=== PATIENT | female | born 1955 | race Hispanic/Latino ===

== ENCOUNTER 2017-11-01 17:46 | Emergency (ER) | payer MEDICARE ==
[~2017-11-01 17:46] MED LIST: AMLO10TA2 PO; CLON0.2T PO; GLIP2.5T2 PO; HYDR100T27 PO; LISI40TA4 PO; METO100T14 PO; PANT40TA25 PO; PHOSLOC PO; TACR1CAP18 PO
[2017-11-01] MEDS ORDERED: ACETAMINOPHEN EXTRA STRENGTH 500 MG TABLET ONE (19:32)
[2017-11-01 19:41] LABS: BASOPHILS % (AUTO) 0.8 % (0.0-5.0); EOSINOPHILS % (AUTO) 4.8 % (0.0-8.0); HEMATOCRIT 30.7 % (36-48); LYMPHOCYTES % (AUTO) 11.3 % (21.0-51.0); MEAN CORPUSCULAR HEMOGLOBIN 32.3 pg (27.0-33.0); MEAN CORPUSCULAR VOLUME 94.8 fL (79-99); MONOCYTES % (AUTO) 11.5 % (3.0-13.0); NEUTROPHILS % (AUTO) 71.6 % (40.0-77.0); PLATELET COUNT (AUTO) 153 K/uL (130-400); RED BLOOD CELL COUNT(AUTO) 3.24 MIL/uL (4.00-5.50); RED CELL DISTRIBUTION WIDTH 13.2 % (11.0-15.5); WHITE BLOOD COUNT (AUTO) 5.3 K/uL (4.8-10.8)
[2017-11-01 19:52] LABS: INR 1.02 (0.85-1.15); PARTIAL THROMBOPLASTIN TIME 30.3 SEC (26.3-35.5); PROTHROMBIN TIME 10.7 SEC (9.6-11.6)
[2017-11-01 20:08] LABS: ALANINE AMINOTRANSFERASE 31 U/L (12-78); ALBUMIN 3.2 g/dL (3.5-5.0); ASPARTATE AMINOTRANSFERASE 24 U/L (10-37); BILIRUBIN,TOTAL 0.4 mg/dL (0.2-1.0); CARBON DIOXIDE 21 mmol/L (21-32); CHLORIDE 95 mmol/L (101-111); CREATINE KINASE MB < 0.5 ng/mL (0.5-3.6); CREATINE KINASE, TOTAL 26 U/L (21-232); GLOMERULAR FILTR. RATE CALC 5 mL/min (>60); GLUCOSE,RANDOM 173 mg/dL (70-105); POTASSIUM 5.2 mmol/L (3.5-5.1); SODIUM SERUM 134 mmol/L (136-145); TOTAL PROTEIN, SERUM 7.5 g/dL (6.0-8.3); UREA NITROGEN, BLOOD 44 mg/dL (7-18)
[2017-11-01] MEDS ORDERED: OSELTAMIVIR PHOSPHATE 75 MG CAP ONE (20:13)
[2017-11-01 20:19] LABS: CREATININE 8.4 mg/dL (0.5-1.5)
== END 2017-11-01 21:00 | disposition home or self-care (01) ==
LOC: EDH 17:46
DX: J09.X2 Influenza due to identified novel influenza A virus with other respiratory manifestations (principal); I12.0 Hypertensive chronic kidney disease with stage 5 chronic kidney disease or end stage renal disease; E11.22 Type 2 diabetes mellitus with diabetic chronic kidney disease; N18.6 End stage renal disease; Z99.2 Dependence on renal dialysis; Z88.0 Allergy status to penicillin; Z91.041 Radiographic dye allergy status; Z90.710 Acquired absence of both cervix and uterus; Z87.891 Personal history of nicotine dependence
CPT/HCPCS: 36415; 71045; 80053; 82550; 82553; 83605; 84484; 85025; 85610; 85730; 87040; 87804; 93005

== ENCOUNTER 2018-09-24 10:55 | Emergency (ER) | payer MEDICARE ==
[~2018-09-24 10:55] MED LIST changes: -AMLO10TA2 PO; +AMLO10TA6 PO
[2018-09-24] MEDS ORDERED: AZITHROMYCIN 250 MG TABLET PO ONE (12:45)
== END 2018-09-24 12:55 | disposition home or self-care (01) ==
LOC: EDH 10:55
DX: J20.9 Acute bronchitis, unspecified (principal); I12.0 Hypertensive chronic kidney disease with stage 5 chronic kidney disease or end stage renal disease; E11.22 Type 2 diabetes mellitus with diabetic chronic kidney disease; N18.6 End stage renal disease; Z99.2 Dependence on renal dialysis; Z90.710 Acquired absence of both cervix and uterus; Z88.0 Allergy status to penicillin; Z91.041 Radiographic dye allergy status
CPT/HCPCS: 71046

== ENCOUNTER 2018-11-14 11:23 | Inpatient (IN) | payer MEDICARE | END 2018-11-18 17:05 | disposition home or self-care (01) | LOC: EDH 11:23 → EDHIP 15:03 → 3BH 16:37 | DX: J18.9 Pneumonia, unspecified organism (principal); N18.6 End stage renal disease; J44.0 Chronic obstructive pulmonary disease with (acute) lower respiratory infection; R01.1 Cardiac murmur, unspecified; Z99.2 Dependence on renal dialysis; E11.22 Type 2 diabetes mellitus with diabetic chronic kidney disease ==

== ENCOUNTER 2018-12-01 15:48 | Inpatient (IN) | payer MEDICARE ==
[~2018-12-01] VITALS: Ht 167.6 cm; Wt 63.7 kg
[~2018-12-01 15:48] MED LIST changes: -AMLO10TA6 PO; +AMLO10TA7 PO; -GLIP2.5T2 PO; +LEVO500T2 PO; -PANT40TA25 PO
[2018-12-01] MEDS ORDERED: ALBUTEROL SULFATE 0.083% 2.5 MG/3 ML INH IH ONE (16:58)
[2018-12-01 17:25] LABS: BASOPHILS % (AUTO) 0.6 % (0.0-5.0); EOSINOPHILS % (AUTO) 1.7 % (0.0-8.0); LYMPHOCYTES % (AUTO) 15.3 % (21.0-51.0); MEAN CORPUSCULAR HEMOGLOBIN 32.4 pg (27.0-33.0); MEAN CORPUSCULAR HGB CONC 32.9 g/dL (32.0-36.0); MEAN CORPUSCULAR VOLUME 98.5 fL (79-99); MONOCYTES % (AUTO) 8.9 % (3.0-13.0); NEUTROPHILS % (AUTO) 73.5 % (40.0-77.0); NUCLEATED RED BLOOD CELLS 0.1 % (0.0-0.19); PLATELET COUNT (AUTO) 173 K/uL (130-400); RED BLOOD CELL COUNT(AUTO) 2.84 MIL/uL (4.00-5.50); RED CELL DISTRIBUTION WIDTH 15.4 % (11.0-15.5); WHITE BLOOD COUNT (AUTO) 4.2 K/uL (4.8-10.8)
[2018-12-01 17:35] LABS: CREATININE 3.4 mg/dL (0.5-1.5); POTASSIUM 3.4 mmol/L (3.5-5.1)
[2018-12-01] MEDS ORDERED: ONDANSETRON HCL 4 MG/2 ML VIAL IV PRN (19:15)
[2018-12-01] MEDS ORDERED: NITROGLYCERIN 1GM/1 INCH PACKET TD SCH (19:15)
[2018-12-01] MEDS ORDERED: MORPHINE SULFATE 2 MG/ML 1ML SYG IV PRN (19:15)
[2018-12-01] MEDS ORDERED: ACETAMINOPHEN 325 MG TAB PO PRN (19:15)
[2018-12-01] MEDS: HYDRALAZINE HCL 25 MG TABLET PO SCH (21:00)
[2018-12-01] MEDS: TACROLIMUS 1 MG CAPSULE PO SCH (21:00)
[2018-12-01] MEDS ORDERED: CLONIDINE HCL 0.2 MG TABLET PO SCH (21:00)
[2018-12-01] MEDS: ENOXAPARIN SODIUM 30 MG/0.3 ML SQ SCH (21:00)
[2018-12-01] MEDS: FUROSEMIDE 10 MG/ML 4ML VIAL IVP SCH (21:00)
[2018-12-01] MEDS: AMLODIPINE BESYLATE 5 MG TAB PO SCH (21:00)
[2018-12-01] MEDS: METOPROLOL TARTRATE 50 MG TAB PO SCH (21:00)
[2018-12-01] MEDS ORDERED: HYDRALAZINE HCL 25 MG TABLET ONE (21:28)
[2018-12-01] MEDS ORDERED: AMLODIPINE BESYLATE 5 MG TAB PO ONE (21:28)
[2018-12-01] MEDS ORDERED: METOPROLOL TARTRATE 50 MG TAB ONE (21:29)
[2018-12-01] MEDS ORDERED: FUROSEMIDE 10 MG/ML 4ML VIAL ONE (21:29)
[2018-12-01] MEDS ORDERED: ENOXAPARIN SODIUM 30 MG/0.3 ML SQ ONE (21:29)
[2018-12-01] MEDS ORDERED: FAMOTIDINE/PF 20 MG/2 ML VIAL IV ONE (21:30)
[2018-12-01] MEDS: IPRATROPIUM/ALBUTEROL SULFATE 3 ML SOLUTION IH SCH (23:23)
[2018-12-02] MEDS ORDERED: IPRATROPIUM/ALBUTEROL SULFATE 3 ML SOLUTION IH ONE ×2 (06:22→11:12)
[2018-12-02] MEDS: IPRATROPIUM/ALBUTEROL SULFATE 3 ML SOLUTION IH SCH ×3 (06:29→18:29)
[2018-12-02] MEDS: CALCIUM ACETATE 667 MG CAPSULE PO SCH ×3 (08:00→17:00)
[2018-12-02] MEDS ORDERED: ESCI5TAB10 PO (08:04)
[2018-12-02] MEDS ORDERED: ONDA4TAB9 PO (08:04)
[2018-12-02] MEDS: NITROGLYCERIN 1GM/1 INCH PACKET TD SCH ×2 (08:29→16:29)
[2018-12-02] MEDS: HYDRALAZINE HCL 25 MG TABLET PO SCH ×3 (09:00→21:00)
[2018-12-02] MEDS: ENOXAPARIN SODIUM 30 MG/0.3 ML SQ SCH ×2 (09:00→21:00)
[2018-12-02] MEDS: FUROSEMIDE 10 MG/ML 4ML VIAL IVP SCH ×2 (09:00→21:00)
[2018-12-02] MEDS: ASPIRIN 325 MG TABLET PO SCH (09:00)
[2018-12-02] MEDS: FAMOTIDINE/PF 20 MG/2 ML VIAL IV SCH (09:00)
[2018-12-02] MEDS: TACROLIMUS 1 MG CAPSULE PO SCH ×2 (09:00→21:00)
[2018-12-02] MEDS: METOPROLOL TARTRATE 50 MG TAB PO SCH ×2 (09:00→21:00)
[2018-12-02] MEDS: LISINOPRIL 40 MG TABLET PO SCH (09:00)
[2018-12-02] MEDS ORDERED: HYDRALAZINE HCL 25 MG TABLET ONE (09:50)
[2018-12-02] MEDS ORDERED: ASPIRIN 325 MG TABLET ONE (09:51)
[2018-12-02] MEDS ORDERED: ENOXAPARIN SODIUM 30 MG/0.3 ML SQ ONE (09:52)
[2018-12-02] MEDS ORDERED: FAMOTIDINE/PF 20 MG/2 ML VIAL IV ONE (09:52)
[2018-12-02] MEDS ORDERED: METOPROLOL TARTRATE 50 MG TAB ONE (09:53)
[2018-12-02] MEDS ORDERED: FUROSEMIDE 10 MG/ML 4ML VIAL ONE (09:58)
[2018-12-02] MEDS ORDERED: CLONIDINE HCL 0.1 MG TABLET ONE (10:23)
[2018-12-02] MEDS ORDERED: METOPROLOL TARTRATE 50 MG TAB PO SCH (10:45)
[2018-12-02] MEDS ORDERED: LISINOPRIL 40 MG TABLET PO SCH (10:45)
[2018-12-02] MEDS ORDERED: CLONIDINE HCL 0.2 MG TABLET PO SCH (10:45)
--- NOTE | 2018-12-02 10:53 | NUR ---
OCTAVIO Pete met with pt who states her 21 yro grandson lives with her, and sometimes her brother stays too. Her mother Coral Lindsey is ER contact [phone]. Pt has walker and w/c. Pt states she got rx for nebulizer and meds yesterday and hasn't filled yet. Pt drives herself to [facility] @ 6am for dialysis. DEnies dc needs, plan is home. Addendum: 12/02/18 at 1057 by RAFAEL GORMAN Amended: Links added.
[2018-12-02] MEDS ORDERED: POTASSIUM CHLORIDE 10% ELIXIR 20 MEQ/15 ML UDCUP ONE (18:10)
[2018-12-02] MEDS: AMLODIPINE BESYLATE 5 MG TAB PO SCH (21:00)
[2018-12-02 23:59] VITALS: BP 146/74
[2018-12-03] MEDS: IPRATROPIUM/ALBUTEROL SULFATE 3 ML SOLUTION IH SCH ×5 (00:34→23:37)
[2018-12-03] MEDS: NITROGLYCERIN 1GM/1 INCH PACKET TD SCH ×3 (01:13→16:29)
[2018-12-03 04:24] VITALS: BP 142/70
[2018-12-03 05:28] LABS: HEMATOCRIT 25.9 % (36-48); MEAN CORPUSCULAR HEMOGLOBIN 33.2 pg (27.0-33.0); MEAN CORPUSCULAR HGB CONC 33.7 g/dL (32.0-36.0); MEAN CORPUSCULAR VOLUME 98.3 fL (79-99); PLATELET COUNT (AUTO) 139 K/uL (130-400); RED BLOOD CELL COUNT(AUTO) 2.64 MIL/uL (4.00-5.50); RED CELL DISTRIBUTION WIDTH 15.9 % (11.0-15.5)
[2018-12-03 05:52] LABS: % IRON SATURATION 26.7 % (22-44)
[2018-12-03 05:55] LABS: ALBUMIN 2.8 g/dL (3.5-5.0); BILIRUBIN,TOTAL 0.5 mg/dL (0.2-1.0); CREATININE 5.8 mg/dL (0.5-1.5); MAGNESIUM 1.9 mg/dL (1.80-2.40); PHOSPHORUS 4.7 mg/dL (2.5-4.9); THYROID STIMULATING HORMONE 1.88 uIU/mL (0.36-3.74); TOTAL PROTEIN, SERUM 6.7 g/dL (6.0-8.3)
[2018-12-03 05:58] LABS: B-TYPE NATRIURETIC PEPTIDE 1640 pg/mL (0-100)
[2018-12-03 07:48] VITALS: BP 154/76
[2018-12-03] MEDS: CALCIUM ACETATE 667 MG CAPSULE PO SCH ×3 (08:00→17:00)
[2018-12-03] MEDS: HYDRALAZINE HCL 25 MG TABLET PO SCH ×3 (09:00→21:00)
[2018-12-03] MEDS: METOPROLOL TARTRATE 50 MG TAB PO SCH ×2 (09:00→21:00)
[2018-12-03] MEDS: ENOXAPARIN SODIUM 30 MG/0.3 ML SQ SCH ×2 (09:00→21:00)
[2018-12-03] MEDS: FUROSEMIDE 10 MG/ML 4ML VIAL IVP SCH (09:00)
[2018-12-03 11:50] VITALS: BP 173/76
[2018-12-03] MEDS: CLONIDINE HCL 0.1 MG TABLET PO SCH ×2 (12:04→21:00)
[2018-12-03] MEDS ORDERED: LIDOCAINE HCL-MPF 1% 2ML VIAL IJ PRN (15:15)
[2018-12-03] MEDS ORDERED: NITROGLYCERIN 0.4 MG SL TAB SL PRN (15:15)
[2018-12-03] MEDS ORDERED: SODIUM CHLORIDE 0.9% 1000ML 1,000 ML IV PRN (15:15)
[2018-12-03] MEDS ORDERED: 0.9% SODIUM CHLORIDE 1000 ML IV BAG IV PRN (15:15)
[2018-12-03] MEDS ORDERED: ACETAMINOPHEN 325 MG TAB PO PRN (15:15)
[2018-12-03 16:38] VITALS: BP 163/71
[2018-12-03] MEDS: TACROLIMUS 1 MG CAPSULE PO SCH ×2 (18:59→21:00)
[2018-12-03] MEDS: LISINOPRIL 40 MG TABLET PO SCH (19:00)
[2018-12-03] MEDS: ASPIRIN 325 MG TABLET PO SCH (19:01)
[2018-12-03] MEDS: FAMOTIDINE/PF 20 MG/2 ML VIAL IV SCH (19:03)
[2018-12-03 19:52] VITALS: BP 155/71
[2018-12-03] MEDS: AMLODIPINE BESYLATE 5 MG TAB PO SCH (21:00)
[2018-12-04 00:21] VITALS: BP 144/75
[2018-12-04] MEDS: NITROGLYCERIN 1GM/1 INCH PACKET TD SCH ×2 (00:29→08:05)
[2018-12-04 04:00] VITALS: BP 158/73
[2018-12-04 04:00] LABS: HEMATOCRIT 25.6 % (36-48); MEAN CORPUSCULAR HEMOGLOBIN 33.4 pg (27.0-33.0); MEAN CORPUSCULAR HGB CONC 34.1 g/dL (32.0-36.0); MEAN CORPUSCULAR VOLUME 98.1 fL (79-99); PLATELET COUNT (AUTO) 140 K/uL (130-400); RED BLOOD CELL COUNT(AUTO) 2.61 MIL/uL (4.00-5.50); WHITE BLOOD COUNT (AUTO) 4.2 K/uL (4.8-10.8)
[2018-12-04 04:07] LABS: CREATININE 3.5 mg/dL (0.5-1.5); MAGNESIUM 1.8 mg/dL (1.80-2.40); POTASSIUM 3.4 mmol/L (3.5-5.1)
[2018-12-04 04:41] LABS: EOSINOPHILS % (MANUAL) 4 % (1-6); LYMPHOCYTES % (MANUAL) 16 % (22-44); MAN.DIFF COMMENT-IMPRESSION MANUAL DIFFERENTIAL; MONOCYTES % (MANUAL) 3 % (2-9); SEGMENTED NEUTROPHILS % 77 % (40-70)
[2018-12-04 04:42] LABS: PLATELET MORPHOLOGY COMMENT SLIGHTLY DECREASED
[2018-12-04] MEDS: IPRATROPIUM/ALBUTEROL SULFATE 3 ML SOLUTION IH SCH ×2 (06:30→11:20)
[2018-12-04 07:49] VITALS: BP 173/81
[2018-12-04] MEDS: ENOXAPARIN SODIUM 30 MG/0.3 ML SQ SCH (08:06)
[2018-12-04] MEDS: FAMOTIDINE/PF 20 MG/2 ML VIAL IV SCH (08:11)
[2018-12-04] MEDS: TACROLIMUS 1 MG CAPSULE PO SCH (08:11)
[2018-12-04] MEDS: CLONIDINE HCL 0.1 MG TABLET PO SCH (08:11)
[2018-12-04] MEDS: METOPROLOL TARTRATE 50 MG TAB PO SCH (08:11)
[2018-12-04] MEDS: HYDRALAZINE HCL 25 MG TABLET PO SCH ×2 (08:11→14:00)
[2018-12-04] MEDS: LISINOPRIL 40 MG TABLET PO SCH (08:11)
[2018-12-04] MEDS: CALCIUM ACETATE 667 MG CAPSULE PO SCH ×2 (08:11→11:49)
[2018-12-04] MEDS: ASPIRIN 325 MG TABLET PO SCH (08:11)
[2018-12-04 11:43] VITALS: BP 152/71
--- NOTE | 2018-12-04 11:50 | NUR ---
O2 SAT ON ROOM AIR: 93%. REPORTED THIS TO DR. MENESES.
--- NOTE | 2018-12-04 14:00 | NUR ---
PATIENT REFUSED SCHEDULED DOSE OF HYDRALAZINE.
--- NOTE | 2018-12-04 15:54 | NUR ---
DISCHARGE INSTRUCTIONS/INFORMATION GIVEN TO PATIENT. NO NEW PRESCRIPTIONS GIVEN. PATIENT IS TO CONTINUE TAKING HER HOME MEDICATIONS. TEACH BACK METHOD USED TO EDUCATE ON BP CONTROL, HEMODIALYSIS SCHEDULE, RENAL DIALYSIS DIET, ACTIVITY, AND F/U APPOINTMENTS. SHE VERBALIZED UNDERSTANDING. PATIENT VOICED THAT SHE WILL BE DRIVING HERSELF HOME BUT SHE DOES NOT RECALL WHERE SHE PARKED EXACTLY. SECURITY WAS ABLE TO FIND HER CAR. SHAHLA BRADY WHEELED HER SAFELY OUTSIDE WHERE SECURITY WAS WAITING FOR HER WITH HER CAR. ALL BELONGINGS WERE TAKEN HOME.
== END 2018-12-04 15:50 | disposition home or self-care (01) | DRG 640 ==
LOC: EDH 15:48 → OBSVTOIN 18:50 → EDHIP 18:50 → 2AH 12-02 20:54
PROVIDERS: ADMIT Internal Medicine; ATTEND Internal Medicine
PROC: 5A1D70Z Performance of Urinary Filtration, Intermittent, Less than 6 Hours Per Day (ICD-10-PCS; principal; 2018-12-03)
DX: E87.70 Fluid overload, unspecified (principal); N18.6 End stage renal disease; I13.2 Hypertensive heart and chronic kidney disease with heart failure and with stage 5 chronic kidney disease, or end stage renal disease; Z94.4 Liver transplant status; I50.22 Chronic systolic (congestive) heart failure; R09.02 Hypoxemia; E11.22 Type 2 diabetes mellitus with diabetic chronic kidney disease; D63.1 Anemia in chronic kidney disease; E78.2 Mixed hyperlipidemia; I08.3 Combined rheumatic disorders of mitral, aortic and tricuspid valves; I25.10 Atherosclerotic heart disease of native coronary artery without angina pectoris; I27.20 Pulmonary hypertension, unspecified; Z88.0 Allergy status to penicillin; Z99.2 Dependence on renal dialysis; Z90.710 Acquired absence of both cervix and uterus; Z87.891 Personal history of nicotine dependence; Z86.73 Personal history of transient ischemic attack (TIA), and cerebral infarction without residual deficits; Z88.8 Allergy status to other drugs, medicaments and biological substances; Z83.3 Family history of diabetes mellitus; Z82.5 Family history of asthma and other chronic lower respiratory diseases; Z82.49 Family history of ischemic heart disease and other diseases of the circulatory system; Z82.3 Family history of stroke; Z82.0 Family history of epilepsy and other diseases of the nervous system; Z80.0 Family history of malignant neoplasm of digestive organs
CPT/HCPCS: 36415; 71046; 78580; 80048; 80053; 82948; 83540; 83550; 83735; 83880; 84100; 84443; 84484; 85025; 85027; 85378; 90935; 93005; 93970; 94640; 94664; A9540; G0378; J1650; J1940; J2405; J3490; J7030; J7507

== ENCOUNTER 2018-12-05 09:45 | Inpatient (IN) | payer MEDICARE | END 2018-12-09 19:06 | disposition home or self-care (01) | LOC: EDH 09:45 → 4AH 12-06 19:09 → EDHIP 16:02 | DX: I13.2 Hypertensive heart and chronic kidney disease with heart failure and with stage 5 chronic kidney disease, or end stage renal disease (principal); N18.6 End stage renal disease; J18.9 Pneumonia, unspecified organism; I50.33 Acute on chronic diastolic (congestive) heart failure; J96.01 Acute respiratory failure with hypoxia; J44.0 Chronic obstructive pulmonary disease with (acute) lower respiratory infection; I27.20 Pulmonary hypertension, unspecified; I08.1 Rheumatic disorders of both mitral and tricuspid valves; R06.09 Other forms of dyspnea; E11.22 Type 2 diabetes mellitus with diabetic chronic kidney disease; Z99.2 Dependence on renal dialysis; E11.43 Type 2 diabetes mellitus with diabetic autonomic (poly)neuropathy; E11.51 Type 2 diabetes mellitus with diabetic peripheral angiopathy without gangrene; E11.69 Type 2 diabetes mellitus with other specified complication ==

== ENCOUNTER 2019-06-15 19:13 | Inpatient (IN) | payer MEDICARE | END 2019-06-17 17:45 | disposition home or self-care (01) | LOC: EDH 19:13 → EDHIP 06-16 01:09 → 3DH 06-16 05:01 | DX: M75.52 Bursitis of left shoulder (principal); N18.6 End stage renal disease; I12.0 Hypertensive chronic kidney disease with stage 5 chronic kidney disease or end stage renal disease; Z94.4 Liver transplant status ==

== ENCOUNTER 2019-09-29 16:49 | Emergency (ER) | payer MEDICARE ==
[~2019-09-29 16:49] MED LIST changes: +ESCI5TAB10 PO; +LEVO250T59 PO; -LEVO500T2 PO; +ONDA4TAB9 PO
[2019-09-29] MEDS ORDERED: INSULIN HUMULIN R 100 UNIT/ML 3ML SQ ONE (16:50)
[2019-09-29 17:29] LABS: BASOPHILS % (AUTO) 0.7 % (0.0-5.0); EOSINOPHILS % (AUTO) 1.2 % (0.0-8.0); HEMATOCRIT 32.6 % (36-48); LYMPHOCYTES % (AUTO) 10.8 % (21.0-51.0); MEAN CORPUSCULAR HEMOGLOBIN 31.9 pg (27.0-33.0); MEAN CORPUSCULAR HGB CONC 33.6 g/dL (32.0-36.0); MONOCYTES % (AUTO) 5.5 % (3.0-13.0); NEUTROPHILS % (AUTO) 81.8 % (40.0-77.0); NUCLEATED RED BLOOD CELLS 0.1 % (0.0-0.19); PLATELET COUNT (AUTO) 166 K/uL (130-400); RED BLOOD CELL COUNT(AUTO) 3.43 MIL/uL (4.00-5.50); WHITE BLOOD COUNT (AUTO) 6.7 K/uL (4.8-10.8)
[2019-09-29 17:43] LABS: INR 1.01 (0.85-1.15); PARTIAL THROMBOPLASTIN TIME 27.4 SEC (26.3-35.5); PROTHROMBIN TIME 10.6 SEC (9.6-11.6)
[2019-09-29 17:47] LABS: ALBUMIN 2.9 g/dL (3.5-5.0); BILIRUBIN,TOTAL 0.4 mg/dL (0.2-1.0); CREATININE 5.3 mg/dL (0.5-1.5); POTASSIUM 5.1 mmol/L (3.5-5.1); TOTAL PROTEIN, SERUM 7.7 g/dL (6.0-8.3)
[2019-09-29] MEDS ORDERED: SODIUM CHLORIDE 0.9% 500ML 500 ML IV ONE (17:59)
[2019-09-29 18:26] LABS: ABG OXYGEN SATURATION 56.3 % (95.0-99.0); BASE EXCESS,VENOUS BLOOD GAS 2.1 (-2.0-3.0); HCO3,VENOUS BLOOD GAS 28.6 (21.0-28.0); PCO2,VENOUS BLOOD GAS 52 (32-45); PH,VENOUS BLOOD GAS 7.361 (7.350-7.450)
[2019-09-29] MEDS ORDERED: ACETAMINOPHEN 325 MG TAB ONE (19:27)
== END 2019-09-29 20:21 | disposition home or self-care (01) ==
LOC: EDH 16:49
DX: S00.93XA Contusion of unspecified part of head, initial encounter (principal); S00.83XA Contusion of other part of head, initial encounter; E11.65 Type 2 diabetes mellitus with hyperglycemia; E11.22 Type 2 diabetes mellitus with diabetic chronic kidney disease; I12.0 Hypertensive chronic kidney disease with stage 5 chronic kidney disease or end stage renal disease; N18.6 End stage renal disease; Z90.710 Acquired absence of both cervix and uterus; Z98.890 Other specified postprocedural states; Z87.891 Personal history of nicotine dependence; Z88.0 Allergy status to penicillin; Z88.1 Allergy status to other antibiotic agents; W19.XXXA Unspecified fall, initial encounter; Y93.01 Activity, walking, marching and hiking; Y92.89 Other specified places as the place of occurrence of the external cause; Y99.8 Other external cause status
CPT/HCPCS: 36415; 36600; 70450; 70486; 71045; 72125; 80053; 82010; 82550; 82803; 82948; 84484; 85025; 85610; 85730; 93005; 96374; 99285; J1815; J7040

== ENCOUNTER 2020-04-23 08:08 | Inpatient (IN) | payer MEDICARE ==
[~2020-04-23] VITALS: Ht 167.6 cm; Wt 65.9 kg
[~2020-04-23 08:08] MED LIST changes: +ONDA-104 PO; -ONDA4TAB9 PO
[2020-04-23 09:10] LABS: BASOPHILS % (AUTO) 0.6 % (0.0-5.0); EOSINOPHILS % (AUTO) 0.6 % (0.0-8.0); HEMATOCRIT 28.9 % (36-48); MEAN CORPUSCULAR HEMOGLOBIN 30.7 pg (27.0-33.0); MEAN CORPUSCULAR HGB CONC 32.9 g/dL (32.0-36.0); MEAN CORPUSCULAR VOLUME 93.5 fL (79-99); MONOCYTES % (AUTO) 6.2 % (3.0-13.0); NEUTROPHILS % (AUTO) 84.2 % (40.0-77.0); PLATELET COUNT (AUTO) 194 K/uL (130-400); RED BLOOD CELL COUNT(AUTO) 3.09 MIL/uL (4.00-5.50); RED CELL DISTRIBUTION WIDTH 13.4 % (11.0-15.5); WHITE BLOOD COUNT (AUTO) 7.2 K/uL (4.8-10.8)
[2020-04-23 09:11] LABS: ABG BASE EXCESS -2.3 mmol/L (-2.0-3.0); ABG HCO3 21.4 mmol/L (21.0-28.0); ABG OXYGEN SATURATION 81.4 % (95.0-99.0); ABG PCO2 34 mmHg (32-45)
[2020-04-23 09:33] LABS: ALANINE AMINOTRANSFERASE 11 U/L (12-78); ALBUMIN 2.5 g/dL (3.5-5.0); ASPARTATE AMINOTRANSFERASE 19 U/L (10-37); BILIRUBIN,TOTAL 0.7 mg/dL (0.2-1.0); CARBON DIOXIDE 24 mmol/L (21-32); CHLORIDE 93 mmol/L (101-111); CREATINE KINASE, TOTAL 10 U/L (21-232); GLOMERULAR FILTR. RATE CALC 5 mL/min (>60); MYOGLOBIN 68 ng/mL (10-92); POTASSIUM 5.1 mmol/L (3.5-5.1); SODIUM SERUM 130 mmol/L (136-145); TOTAL PROTEIN, SERUM 7.5 g/dL (6.0-8.3); TROPONIN I < 0.04 ng/mL (0.00-0.06); UREA NITROGEN, BLOOD 49 mg/dL (7-18)
[2020-04-23 09:38] LABS: INR 1.06 (0.85-1.15); PROTHROMBIN TIME 11.4 SEC (9.6-11.6)
[2020-04-23 09:44] LABS: CREATININE 8.3 mg/dL (0.5-1.5); GLUCOSE,RANDOM 423 mg/dL (70-105)
[2020-04-23] MEDS ORDERED: LEVOFLOXACIN 500 MG/D5W 100 ML 100 ML ONE (12:37)
[2020-04-23] MEDS ORDERED: INSULIN GLARGINE 100 UNITS/ML 10 ML VIAL SQ ONE (14:45)
[2020-04-23] MEDS ORDERED: INSULIN LISPRO 100 UNIT/ML 3ML SQ SCH (14:45)
[2020-04-23] MEDS ORDERED: HYDRALAZINE HCL 20 MG/ML VIAL IV PRN (15:00)
[2020-04-23] MEDS ORDERED: ONDANSETRON HCL 4 MG/2 ML VIAL IV PRN (15:00)
[2020-04-23] MEDS ORDERED: ACETAMINOPHEN 325 MG TAB PO PRN (15:00)
[2020-04-23] MEDS ORDERED: INSULIN NPH 100 UNIT/ML 3ML SQ ONE (16:08)
[2020-04-23] MEDS ORDERED: INSULIN GLARGINE 100 UNITS/ML 10 ML VIAL SQ SCH (21:00)
[2020-04-23] MEDS ORDERED: HEPARIN SODIUM 5000UNIT/ML 1ML VIAL ONE (21:47)
[2020-04-24 05:00] LABS: BASOPHILS % (AUTO) 0.7 % (0.0-5.0); EOSINOPHILS % (AUTO) 3.3 % (0.0-8.0); HEMATOCRIT 31.1 % (36-48); LYMPHOCYTES % (AUTO) 13.2 % (21.0-51.0); MEAN CORPUSCULAR HEMOGLOBIN 30.2 pg (27.0-33.0); MEAN CORPUSCULAR HGB CONC 32.8 g/dL (32.0-36.0); MONOCYTES % (AUTO) 7.7 % (3.0-13.0); NEUTROPHILS % (AUTO) 74.6 % (40.0-77.0); PLATELET COUNT (AUTO) 189 K/uL (130-400); RED BLOOD CELL COUNT(AUTO) 3.38 MIL/uL (4.00-5.50); RED CELL DISTRIBUTION WIDTH 13.4 % (11.0-15.5); WHITE BLOOD COUNT (AUTO) 5.7 K/uL (4.8-10.8)
[2020-04-24 05:08] LABS: HEMOGLOBIN A1C 10.9 % (4.0-6.0)
[2020-04-24 05:13] LABS: ALBUMIN 2.7 g/dL (3.5-5.0); BILIRUBIN,TOTAL 0.7 mg/dL (0.2-1.0); CREATININE 5.3 mg/dL (0.5-1.5); CRP QUANTITATIVE 60.6 mg/L (0.00-9.0); POTASSIUM 4.3 mmol/L (3.5-5.1); TOTAL PROTEIN, SERUM 8.1 g/dL (6.0-8.3)
[2020-04-24 05:26] LABS: B-TYPE NATRIURETIC PEPTIDE 3100 pg/mL (0-100)
[2020-04-24] MEDS: FAMOTIDINE 20MG TAB 20 MG TAB PO SCH (09:00)
--- NOTE | 2020-04-24 10:08 | NUR ---
CHART CHECK COMPLETED. Pt IS A 64 Y.O. FEMALE ADMITTED SECONDARY TO FLUID OVERLOAD, DYSPNEA, ESRD-HD. Pt HAS A PAST MEDICAL HISTORY SIGNIFICANT FOR DMII, HYPERTENSIVE RENAL DISEASE, MIXED HYPERLIPIDEMIA DUE TO DM, HISTORY OF LIVER FAILURE S/P LIVER TRANSPLANT IN 1996, ESRD-HD, DIABETIC GASTROPARESIS, CVA MANIFESTING LEFT RETINAL INFARCT, CHF, PERIPHERAL VASCULAR DISEASE, ANEMIA OF RENAL DISEASE, BILATERAL AV GRAFTS, ABDOMINAL HYSTERECTOMY AND TONSILLECTOMY. PLEASE REQUEST FORMAL SPEECH/SWALLOW EVALUATION IF Pt PRESENTS WITH +S/S OF ASPIRATION OF COUGH RESPONSE, THROAT CLEAR OR WET VOCAL QUALITY AT MEAL TIMES. Addendum: 04/24/20 at [address] [facility] Amended: Links added.
[2020-04-24] MEDS ORDERED: HEPARIN SODIUM 5000UNIT/ML 1ML VIAL ONE (10:15)
[2020-04-24] MEDS ORDERED: INSULIN HUMULIN R 100 UNIT/ML 3ML ONE ×2 (10:16→16:39)
[2020-04-24] MEDS ORDERED: INSULIN GLARGINE 100 UNITS/ML 10 ML VIAL SQ SCH (12:00)
--- NOTE | 2020-04-24 12:40 | NUR ---
DCP: HOME Sw unable to speak to pt who is in ER. SW called pt's mother Coral Lindsey [phone]. Mother reports pt lives alone. Has 3 adult children that do not live in [place] or close by. Mother reports that pt is on dialysis TTS at [facility] and drives herself. Pt has difficulty completing ADLS, but was told she did not qualify for provider. Pt uses a cane and no in home care services. PCP is Rita Rm and uses [facility] for medications. Plan is home at tn Addendum: 04/24/20 at 1254 by RAFAEL GORMAN Amended: Links added.
--- NOTE | 2020-04-24 18:35 | NUR ---
PT CAME FROM ER BY STRETCHER,VS ARE STABLE, A/A X 3, SPO2 99% IN ROOM AIR. REPORT GIVEN TO NATIVIDAD RAMACHANDRAN.
[2020-04-24 19:09] VITALS: BP 166/51
[2020-04-24] MEDS: HEPARIN SODIUM 5000UNIT/ML 1ML VIAL SQ SCH ×2 (21:00→21:10)
[2020-04-24] MEDS: INSULIN HUMULIN R 100 UNIT/ML 3ML SQ SCH (21:00)
[2020-04-24] MEDS: AMLODIPINE BESYLATE 5 MG TAB PO SCH (21:08)
[2020-04-24] MEDS ORDERED: ONDA4TAB4 PO (22:39)
[2020-04-24 23:28] VITALS: BP 148/85
[2020-04-25 03:21] VITALS: BP 149/72
[2020-04-25 05:44] LABS: BASOPHILS % (AUTO) 0.5 % (0.0-5.0); EOSINOPHILS % (AUTO) 3.2 % (0.0-8.0); HEMATOCRIT 29.1 % (36-48); LYMPHOCYTES % (AUTO) 10.7 % (21.0-51.0); MEAN CORPUSCULAR HEMOGLOBIN 30.9 pg (27.0-33.0); MEAN CORPUSCULAR VOLUME 93.6 fL (79-99); MONOCYTES % (AUTO) 11.4 % (3.0-13.0); NEUTROPHILS % (AUTO) 73.8 % (40.0-77.0); PLATELET COUNT (AUTO) 184 K/uL (130-400); RED BLOOD CELL COUNT(AUTO) 3.11 MIL/uL (4.00-5.50); RED CELL DISTRIBUTION WIDTH 13.2 % (11.0-15.5); WHITE BLOOD COUNT (AUTO) 5.6 K/uL (4.8-10.8)
[2020-04-25] MEDS: ALBUTEROL INHALER 90MCG/INH IH SCH ×2 (06:00→12:00)
[2020-04-25] MEDS: INSULIN HUMULIN R 100 UNIT/ML 3ML SQ SCH ×6 (06:09→21:35)
[2020-04-25 06:14] LABS: ALBUMIN 2.2 g/dL (3.5-5.0); BILIRUBIN,TOTAL 0.5 mg/dL (0.2-1.0); CREATININE 7.4 mg/dL (0.5-1.5); PHOSPHORUS 5.2 mg/dL (2.5-4.9); POTASSIUM 4.4 mmol/L (3.5-5.1); TOTAL PROTEIN, SERUM 7.4 g/dL (6.0-8.3)
[2020-04-25 07:21] VITALS: BP 145/81
--- NOTE | 2020-04-25 08:51 | NUR ---
DIALYSIS NURSE HEMALATHA YOUNG STATES WILL COME DIALYZE PATIENT LATER TODAY.
[2020-04-25] MEDS: HEPARIN SODIUM 5000UNIT/ML 1ML VIAL SQ SCH ×3 (09:00→21:31)
[2020-04-25] MEDS: AMLODIPINE BESYLATE 5 MG TAB PO SCH ×3 (09:00→21:20)
[2020-04-25] MEDS: FAMOTIDINE 20MG TAB 20 MG TAB PO SCH (10:51)
[2020-04-25] MEDS: LEVOFLOXACIN 250 MG/D5W 50ML 50 ML IV SCH (10:51)
--- NOTE | 2020-04-25 10:55 | NUR ---
PT COMPLAINING OF PALPITATIONS AJ PAGED
[2020-04-25 11:15] VITALS: BP 153/92
[2020-04-25] MEDS ORDERED: METOPROLOL TARTRATE 1 MG/ML 5ML VIAL IV ONE (11:23)
[2020-04-25] MEDS ORDERED: METOPROLOL TARTRATE 1 MG/ML 5ML VIAL IV SCH (11:30)
[2020-04-25 11:39] LABS: TROPONIN I 0.08 ng/mL (0.00-0.06)
[2020-04-25] MEDS ORDERED: ALPRAZOLAM 0.25 MG TABLET PO SCH (11:45)
--- NOTE | 2020-04-25 12:56 | NUR ---
EKG, CE DONE D/T PALPATIONS AJ AWARE OF TROPONIN LEVELS. STATES WILL ENTER ORDERS.
[2020-04-25] MEDS ORDERED: ASPIRIN 325 MG TABLET PO SCH (13:45)
[2020-04-25] MEDS: HYDRALAZINE HCL 25 MG TABLET PO SCH ×2 (14:00→21:20)
[2020-04-25 14:18] LABS: THYROID STIMULATING HORMONE 0.88 uIU/mL (0.36-3.74)
[2020-04-25 15:49] VITALS: BP 146/84
[2020-04-25] MEDS: ALBUTEROL SULFATE 0.083% 2.5 MG/3 ML INH IH SCH ×2 (16:00→18:38)
[2020-04-25] MEDS: CALCIUM ACETATE 667 MG CAPSULE PO SCH (16:19)
--- NOTE | 2020-04-25 17:45 | NUR ---
DRAFTER CHIEF DESIGN AJ AWARE OF TROPONINS EKG, NO NEW ORDERS. STATES TO MONITOR HR AND TO CALL IF TACHY.
[2020-04-25] MEDS ORDERED: INSULIN GLARGINE 100 UNITS/ML 10 ML VIAL SQ SCH (19:00)
[2020-04-25 19:47] VITALS: BP 160/75
[2020-04-25] MEDS: ATORVASTATIN CALCIUM 20 MG TABLET PO SCH (21:00)
[2020-04-25] MEDS: METOPROLOL TARTRATE 50 MG TAB PO SCH (21:19)
[2020-04-25] MEDS: CITALOPRAM 20 MG TABLET PO SCH (21:20)
[2020-04-25] MEDS: CLONIDINE HCL 0.2 MG TABLET PO SCH (21:21)
[2020-04-25] MEDS: TACROLIMUS 1 MG CAPSULE PO SCH (21:28)
[2020-04-26] VITALS (7 sets, daily range): BP systolic 98–138; BP diastolic 60–83
[2020-04-26] MEDS: ALBUTEROL SULFATE 0.083% 2.5 MG/3 ML INH IH SCH ×3 (01:29→18:15)
[2020-04-26 05:30] LABS: BASOPHILS % (AUTO) 0.4 % (0.0-5.0); EOSINOPHILS % (AUTO) 3.9 % (0.0-8.0); HEMATOCRIT 29.2 % (36-48); LYMPHOCYTES % (AUTO) 16.7 % (21.0-51.0); MEAN CORPUSCULAR HEMOGLOBIN 30.6 pg (27.0-33.0); MEAN CORPUSCULAR HGB CONC 32.5 g/dL (32.0-36.0); MEAN CORPUSCULAR VOLUME 94.2 fL (79-99); MONOCYTES % (AUTO) 10.5 % (3.0-13.0); NEUTROPHILS % (AUTO) 68.1 % (40.0-77.0); PLATELET COUNT (AUTO) 178 K/uL (130-400); RED CELL DISTRIBUTION WIDTH 13.2 % (11.0-15.5); WHITE BLOOD COUNT (AUTO) 4.7 K/uL (4.8-10.8)
[2020-04-26 05:45] LABS: ALBUMIN 2.4 g/dL (3.5-5.0); BILIRUBIN,TOTAL 0.4 mg/dL (0.2-1.0); CREATININE 4.8 mg/dL (0.5-1.5); POTASSIUM 4.2 mmol/L (3.5-5.1); TOTAL PROTEIN, SERUM 7.3 g/dL (6.0-8.3)
[2020-04-26] MEDS ORDERED: INSULIN GLARGINE 100 UNITS/ML 10 ML VIAL SQ SCH ×2 (07:00→19:00)
[2020-04-26] MEDS: INSULIN HUMULIN R 100 UNIT/ML 3ML SQ SCH ×8 (07:30→21:30)
[2020-04-26] MEDS: CALCIUM ACETATE 667 MG CAPSULE PO SCH ×3 (08:00→17:07)
[2020-04-26] MEDS: AMLODIPINE BESYLATE 5 MG TAB PO SCH ×3 (09:00→21:14)
[2020-04-26] MEDS: FAMOTIDINE 20MG TAB 20 MG TAB PO SCH (09:26)
[2020-04-26] MEDS: HYDRALAZINE HCL 25 MG TABLET PO SCH ×3 (09:26→21:13)
[2020-04-26] MEDS: METOPROLOL TARTRATE 50 MG TAB PO SCH ×2 (09:26→21:14)
[2020-04-26] MEDS: CLONIDINE HCL 0.2 MG TABLET PO SCH ×2 (09:28→21:00)
[2020-04-26] MEDS: TACROLIMUS 1 MG CAPSULE PO SCH ×2 (09:28→21:18)
[2020-04-26] MEDS: ASPIRIN 81MG TAB.CHEW PO SCH (09:28)
[2020-04-26] MEDS: LISINOPRIL 40 MG TABLET PO SCH (09:29)
[2020-04-26] MEDS: HEPARIN SODIUM 5000UNIT/ML 1ML VIAL SQ SCH ×2 (09:35→21:31)
[2020-04-26] MEDS: ATORVASTATIN CALCIUM 20 MG TABLET PO SCH (21:14)
[2020-04-26] MEDS: CITALOPRAM 20 MG TABLET PO SCH (21:15)
[2020-04-27 04:17] LABS: MEAN CORPUSCULAR HEMOGLOBIN 30.5 pg (27.0-33.0); MEAN CORPUSCULAR HGB CONC 32.5 g/dL (32.0-36.0); RED BLOOD CELL COUNT(AUTO) 2.98 MIL/uL (4.00-5.50); RED CELL DISTRIBUTION WIDTH 13.3 % (11.0-15.5); WHITE BLOOD COUNT (AUTO) 5.2 K/uL (4.8-10.8)
[2020-04-27 04:24] VITALS: BP 90/50
[2020-04-27 04:29] LABS: CREATININE 6.3 mg/dL (0.5-1.5); POTASSIUM 4.8 mmol/L (3.5-5.1)
[2020-04-27] MEDS: ALBUTEROL SULFATE 0.083% 2.5 MG/3 ML INH IH SCH ×3 (07:23→13:32)
[2020-04-27] MEDS: INSULIN HUMULIN R 100 UNIT/ML 3ML SQ SCH ×6 (07:30→17:07)
[2020-04-27 08:00] VITALS: BP 115/68
[2020-04-27] MEDS: CALCIUM ACETATE 667 MG CAPSULE PO SCH ×3 (08:00→17:04)
[2020-04-27] MEDS: HYDRALAZINE HCL 25 MG TABLET PO SCH ×2 (09:00→14:00)
[2020-04-27] MEDS: CLONIDINE HCL 0.2 MG TABLET PO SCH (09:00)
[2020-04-27] MEDS: HEPARIN SODIUM 5000UNIT/ML 1ML VIAL SQ SCH (09:00)
[2020-04-27] MEDS: LISINOPRIL 40 MG TABLET PO SCH (09:00)
[2020-04-27] MEDS: METOPROLOL TARTRATE 50 MG TAB PO SCH (09:00)
[2020-04-27] MEDS: AMLODIPINE BESYLATE 5 MG TAB PO SCH (09:00)
[2020-04-27] MEDS: ASPIRIN 81MG TAB.CHEW PO SCH (09:02)
[2020-04-27] MEDS: TACROLIMUS 1 MG CAPSULE PO SCH (09:02)
[2020-04-27] MEDS: LEVOFLOXACIN 250 MG/D5W 50ML 50 ML IV SCH (09:02)
[2020-04-27] MEDS: FAMOTIDINE 20MG TAB 20 MG TAB PO SCH (09:02)
[2020-04-27 11:46] VITALS: BP 92/49
[2020-04-27] MEDS ORDERED: MIDODRINE HCL 5 MG TABLET PO SCH (13:30)
[2020-04-27] MEDS ORDERED: INSLAN SQ (15:15)
[2020-04-27] MEDS ORDERED: INSU100C6 SQ (15:15)
[2020-04-27 16:00] VITALS: BP 108/62
[2020-04-27] MEDS ORDERED: INSULIN GLARGINE 100 UNITS/ML 10 ML VIAL SQ SCH (19:00)
== END 2020-04-27 20:13 | disposition home or self-care (01) | DRG 193 ==
LOC: EDH 08:08 → EDHIP 14:48 → 3BH 04-24 17:58
PROVIDERS: ADMIT Hospitalist; ATTEND Hospitalist
PROC: 5A1D70Z Performance of Urinary Filtration, Intermittent, Less than 6 Hours Per Day (ICD-10-PCS; principal; 2020-04-23)
PROC: 5A1D70Z Performance of Urinary Filtration, Intermittent, Less than 6 Hours Per Day (ICD-10-PCS; 2020-04-25)
PROC: 5A1D70Z Performance of Urinary Filtration, Intermittent, Less than 6 Hours Per Day (ICD-10-PCS; 2020-04-27)
DX: J18.9 Pneumonia, unspecified organism (principal); J96.01 Acute respiratory failure with hypoxia; N18.6 End stage renal disease; I12.0 Hypertensive chronic kidney disease with stage 5 chronic kidney disease or end stage renal disease; Z94.4 Liver transplant status; J81.1 Chronic pulmonary edema; E87.1 Hypo-osmolality and hyponatremia; E87.70 Fluid overload, unspecified; E11.22 Type 2 diabetes mellitus with diabetic chronic kidney disease; R53.81 Other malaise; E11.65 Type 2 diabetes mellitus with hyperglycemia; E11.51 Type 2 diabetes mellitus with diabetic peripheral angiopathy without gangrene; D64.9 Anemia, unspecified; K74.60 Unspecified cirrhosis of liver; Z20.828 Contact with and (suspected) exposure to other viral communicable diseases; Z99.2 Dependence on renal dialysis; Z79.4 Long term (current) use of insulin; Z80.0 Family history of malignant neoplasm of digestive organs; Z82.5 Family history of asthma and other chronic lower respiratory diseases; Z82.49 Family history of ischemic heart disease and other diseases of the circulatory system; Z82.3 Family history of stroke; Z82.0 Family history of epilepsy and other diseases of the nervous system; Z90.710 Acquired absence of both cervix and uterus; Z91.041 Radiographic dye allergy status; Z88.0 Allergy status to penicillin; Z91.19 Patient's noncompliance with other medical treatment and regimen; Z91.11 Patient's noncompliance with dietary regimen; Z83.3 Family history of diabetes mellitus
CPT/HCPCS: 36415; 36600; 71045; 71046; 78582; 80048; 80053; 80061; 82010; 82550; 82728; 82803; 82948; 83036; 83605; 83874; 83880; 84100; 84145; 84443; 84484; 85025; 85027; 85378; 85610; 85730; 86140; 87040; 87804; 90935; 93005; 93306; 93356; 94640; 94664; A9540; A9558; G0378; J1644; J1815; J1956; J3490; J7507; U0003

== ENCOUNTER 2020-04-30 03:51 | Inpatient (IN) | payer MEDICARE ==
[~2020-04-30] VITALS: Ht 167.6 cm; Wt 66.5 kg
[~2020-04-30 03:51] MED LIST changes: +INSLAN SQ; +INSU100C6 SQ; -LEVO250T59 PO; -ONDA-104 PO; +ONDA4TAB4 PO
[2020-04-30 04:59] LABS: BASOPHILS % (AUTO) 0.4 % (0.0-5.0); HEMATOCRIT 27.7 % (36-48); LYMPHOCYTES % (AUTO) 7.8 % (21.0-51.0); MEAN CORPUSCULAR HEMOGLOBIN 30.4 pg (27.0-33.0); MEAN CORPUSCULAR HGB CONC 32.5 g/dL (32.0-36.0); MEAN CORPUSCULAR VOLUME 93.6 fL (79-99); MONOCYTES % (AUTO) 4.7 % (3.0-13.0); NEUTROPHILS % (AUTO) 85.2 % (40.0-77.0); PLATELET COUNT (AUTO) 184 K/uL (130-400); RED BLOOD CELL COUNT(AUTO) 2.96 MIL/uL (4.00-5.50); RED CELL DISTRIBUTION WIDTH 13.3 % (11.0-15.5); WHITE BLOOD COUNT (AUTO) 9.4 K/uL (4.8-10.8)
[2020-04-30 05:03] LABS: INR 1.01 (0.85-1.15); PARTIAL THROMBOPLASTIN TIME 27.5 SEC (26.3-35.5); PROTHROMBIN TIME 10.9 SEC (9.6-11.6)
[2020-04-30 05:17] LABS: ABG BASE EXCESS -0.7 mmol/L (-2.0-3.0); ABG HCO3 22.8 mmol/L (21.0-28.0); ABG OXYGEN SATURATION 87.2 % (95.0-99.0); ABG PCO2 34 mmHg (32-45)
[2020-04-30 05:20] LABS: CREATINE KINASE, TOTAL 57 U/L (21-232); MYOGLOBIN 74 ng/mL (10-92); TROPONIN I < 0.04 ng/mL (0.00-0.06)
[2020-04-30] MEDS ORDERED: CEFTRIAXONE SODIUM 1 GM ONE (07:27)
[2020-04-30] MEDS ORDERED: AZITHROMYCIN 500MG+NS 250ML 250 ML IV ONE (07:27)
[2020-04-30] MEDS ORDERED: SODIUM CHLORIDE 0.9% 100 ML IV ONE (07:31)
[2020-04-30] MEDS ORDERED: ACETAMINOPHEN 325 MG TAB PO PRN ×2 (08:15)
[2020-04-30] MEDS ORDERED: LACTULOSE 20 GM/30 ML UDCUP PO PRN (08:15)
[2020-04-30] MEDS ORDERED: DIPHENHYDRAMINE HCL 25 MG CAPSULE PO PRN (08:15)
[2020-04-30] MEDS ORDERED: DOXYCYCLINE 100MG+NS 250ML 250 ML IV SCH (08:15)
[2020-04-30] MEDS ORDERED: GUAIFENESIN-DM 200/20 MG 10 ML PO PRN (08:15)
[2020-04-30] MEDS ORDERED: MAG HYDROX/AL HYDROX/SIMETH ES 30 ML SUSP UDCUP PO PRN (08:15)
[2020-04-30] MEDS ORDERED: ERGOCALCIFEROL (VITAMIN D2) 50,000 UNIT CAPSULE PO SCH (08:15)
[2020-04-30] MEDS ORDERED: NITROGLYCERIN 0.4 MG SL TAB SL PRN (08:15)
[2020-04-30] MEDS ORDERED: ZOLPIDEM TARTRATE 5 MG TAB PO PRN (08:15)
[2020-04-30] MEDS ORDERED: DiphenhydrAMINE HCL 50 MG/ML VIAL IV PRN (08:15)
[2020-04-30] MEDS: ASCORBIC ACID 500 MG TAB PO SCH (09:00)
[2020-04-30] MEDS: HEPARIN SODIUM 5000UNIT/ML 1ML VIAL SQ SCH ×2 (09:00→21:00)
[2020-04-30] MEDS: ZINC SULFATE 220 CAPSULE PO SCH (09:00)
[2020-04-30] MEDS: FAMOTIDINE 20MG TAB 20 MG TAB PO SCH ×2 (09:00→21:00)
[2020-04-30 09:26] LABS: ALBUMIN 2.6 g/dL (3.5-5.0); BILIRUBIN,TOTAL 0.5 mg/dL (0.2-1.0); POTASSIUM 5.9 mmol/L (3.5-5.1); TOTAL PROTEIN, SERUM 7.3 g/dL (6.0-8.3)
[2020-04-30] MEDS: CEFTRIAXONE SODIUM 1 GM IV SCH (09:29)
[2020-04-30 09:31] LABS: CREATININE 8.2 mg/dL (0.5-1.5)
[2020-04-30] MEDS: DOXYCYCLINE HYCLATE 100 MG TABLET PO SCH ×2 (09:31→21:00)
[2020-04-30] MEDS ORDERED: DOXYCYCLINE 100MG+NS 250ML 250 ML IV ONE ×2 (11:15→19:40)
[2020-04-30] MEDS ORDERED: FAMOTIDINE 20MG TAB 20 MG TAB ONE ×2 (11:15→19:41)
[2020-04-30] MEDS ORDERED: ERGOCALCIFEROL (VITAMIN D2) 50,000 UNIT CAPSULE ONE (11:15)
[2020-04-30] MEDS ORDERED: ZINC SULFATE 220 CAPSULE ONE (11:16)
[2020-04-30] MEDS ORDERED: HEPARIN SODIUM 5000UNIT/ML 1ML VIAL ONE ×2 (11:16→19:41)
[2020-04-30] MEDS ORDERED: INSULIN HUMULIN R 100 UNIT/ML 3ML ONE (17:30)
[2020-05-01 06:16] LABS: BASOPHILS % (AUTO) 0.8 % (0.0-5.0); EOSINOPHILS % (AUTO) 3.3 % (0.0-8.0); HEMATOCRIT 26.5 % (36-48); LYMPHOCYTES % (AUTO) 24.6 % (21.0-51.0); MEAN CORPUSCULAR HEMOGLOBIN 30.2 pg (27.0-33.0); MEAN CORPUSCULAR HGB CONC 32.5 g/dL (32.0-36.0); NEUTROPHILS % (AUTO) 64.1 % (40.0-77.0); PLATELET COUNT (AUTO) 175 K/uL (130-400); RED BLOOD CELL COUNT(AUTO) 2.85 MIL/uL (4.00-5.50); RED CELL DISTRIBUTION WIDTH 13.2 % (11.0-15.5); WHITE BLOOD COUNT (AUTO) 4.9 K/uL (4.8-10.8)
[2020-05-01 06:43] LABS: ALBUMIN 2.5 g/dL (3.5-5.0); BILIRUBIN,TOTAL 0.5 mg/dL (0.2-1.0); CREATININE 5.3 mg/dL (0.5-1.5); CRP QUANTITATIVE 43.8 mg/L (0.00-9.0); POTASSIUM 4.8 mmol/L (3.5-5.1); TOTAL PROTEIN, SERUM 7.3 g/dL (6.0-8.3)
[2020-05-01] MEDS ORDERED: SODIUM CHLORIDE 0.9% 100 ML IV ONE (07:51)
[2020-05-01] MEDS ORDERED: FAMOTIDINE 20MG TAB 20 MG TAB ONE (08:08)
[2020-05-01] MEDS ORDERED: DOXYCYCLINE HYCLATE 100 MG TABLET PO ONE (08:08)
[2020-05-01] MEDS ORDERED: ASCORBIC ACID 500 MG TAB ONE (08:08)
[2020-05-01] MEDS ORDERED: ZINC SULFATE 220 CAPSULE ONE (08:09)
[2020-05-01] MEDS ORDERED: HEPARIN SODIUM 5000UNIT/ML 1ML VIAL ONE (08:09)
[2020-05-01] MEDS ORDERED: INSULIN HUMULIN R 100 UNIT/ML 3ML ONE ×2 (08:52→14:07)
[2020-05-01] MEDS: HEPARIN SODIUM 5000UNIT/ML 1ML VIAL SQ SCH ×2 (09:00→21:26)
[2020-05-01] MEDS: ZINC SULFATE 220 CAPSULE PO SCH (09:00)
[2020-05-01] MEDS: FAMOTIDINE 20MG TAB 20 MG TAB PO SCH ×2 (09:00→21:21)
[2020-05-01] MEDS: CEFTRIAXONE SODIUM 1 GM IV SCH (09:00)
[2020-05-01] MEDS: DOXYCYCLINE HYCLATE 100 MG TABLET PO SCH ×2 (09:00→21:21)
[2020-05-01] MEDS: ASCORBIC ACID 500 MG TAB PO SCH (09:00)
--- NOTE | 2020-05-01 16:06 | NUR ---
LAST CHART REVIEWED FOR IA NO ANSWER ON PATIENTS PHONE, CONTACT NUMBER IS INCORRECT CHART REVIEWED. STATS PATIENT IS INDEPENDENT, LIVES ALONE, DRIVES SELF TO HD TTS EDANDRE WALLACE, ALYCE PROVIDER, RM TO FOLLOW UP WHEN OUT OF THE ER AND CAN TALK TO PATIENT DIRECTLY FOR ANY DISCHARGE NEEDS UPDATES Addendum: 05/01/20 at 1608 by KAREN APODACA RN CM Amended: Links added.
[2020-05-01 20:31] VITALS: BP 103/70
[2020-05-01] MEDS: INSULIN HUMULIN R 100 UNIT/ML 3ML SQ SCH (21:32)
[2020-05-01] MEDS ORDERED: ONDA4TAB4 PO (21:46)
[2020-05-01] MEDS ORDERED: ALBU0.63 IH (21:46)
[2020-05-01] MEDS ORDERED: METO100T14 PO (21:46)
[2020-05-01] MEDS ORDERED: AMLO5TAB4 PO (21:46)
[2020-05-01] MEDS ORDERED: CLON0.2T PO (21:46)
[2020-05-01] MEDS ORDERED: ESCI5TAB10 PO (21:46)
[2020-05-01 23:00] VITALS: BP 111/28
[2020-05-02] VITALS (7 sets, daily range): BP systolic 128–155; BP diastolic 35–59
[2020-05-02 05:10] LABS: BASOPHILS % (AUTO) 0.6 % (0.0-5.0); EOSINOPHILS % (AUTO) 2.4 % (0.0-8.0); LYMPHOCYTES % (AUTO) 15.1 % (21.0-51.0); MEAN CORPUSCULAR HEMOGLOBIN 30.7 pg (27.0-33.0); MEAN CORPUSCULAR HGB CONC 32.7 g/dL (32.0-36.0); MEAN CORPUSCULAR VOLUME 93.9 fL (79-99); MONOCYTES % (AUTO) 7.6 % (3.0-13.0); NEUTROPHILS % (AUTO) 73.8 % (40.0-77.0); PLATELET COUNT (AUTO) 191 K/uL (130-400); RED BLOOD CELL COUNT(AUTO) 2.77 MIL/uL (4.00-5.50); RED CELL DISTRIBUTION WIDTH 13.2 % (11.0-15.5); WHITE BLOOD COUNT (AUTO) 6.2 K/uL (4.8-10.8)
[2020-05-02 05:41] LABS: ALBUMIN 2.7 g/dL (3.5-5.0); BILIRUBIN,TOTAL 0.6 mg/dL (0.2-1.0); CREATININE 6.9 mg/dL (0.5-1.5); CRP QUANTITATIVE 39.3 mg/L (0.00-9.0); POTASSIUM 5.1 mmol/L (3.5-5.1); TOTAL PROTEIN, SERUM 7.7 g/dL (6.0-8.3)
[2020-05-02] MEDS: INSULIN HUMULIN R 100 UNIT/ML 3ML SQ SCH ×4 (06:32→22:06)
--- NOTE | 2020-05-02 08:00 | NUR ---
DR. BOYLE TOLD OF D-DIMER RESULTS, 6674, UP FROM 3617.
--- NOTE | 2020-05-02 08:00 | NUR ---
RT. PUPIL 3MM AND BRISK REACTION, LT. PUPIL IS A 4 AND FIXED. Addendum: 05/02/20 at 1128 by HERBERT TELLO RN RN Amended: Links added.
[2020-05-02] MEDS: TACROLIMUS 1 MG CAPSULE PO SCH ×2 (10:00→21:15)
[2020-05-02] MEDS: ZINC SULFATE 220 CAPSULE PO SCH (10:00)
[2020-05-02] MEDS: ASCORBIC ACID 500 MG TAB PO SCH (10:00)
[2020-05-02] MEDS: FAMOTIDINE 20MG TAB 20 MG TAB PO SCH ×2 (10:01→21:15)
[2020-05-02] MEDS: DOXYCYCLINE HYCLATE 100 MG TABLET PO SCH (10:01)
[2020-05-02] MEDS: CEFTRIAXONE SODIUM 1 GM IV SCH (10:01)
[2020-05-02] MEDS: HEPARIN SODIUM 5000UNIT/ML 1ML VIAL SQ SCH ×2 (10:12→21:18)
--- NOTE | 2020-05-02 10:49 | NUR ---
hemo-dialysis nurse notified of pt. admission, needs to have dialysis today.
[2020-05-02] MEDS ORDERED: 0.9% SODIUM CHLORIDE 1000 ML IV BAG IV PRN (12:30)
[2020-05-02] MEDS ORDERED: ACETAMINOPHEN 325 MG TAB PO PRN (12:30)
[2020-05-02] MEDS ORDERED: LIDOCAINE HCL-MPF 1% 2ML VIAL IJ PRN (12:30)
[2020-05-02] MEDS ORDERED: SODIUM CHLORIDE 0.9% 1000ML 1,000 ML IV PRN (12:30)
[2020-05-02] MEDS ORDERED: NITROGLYCERIN 0.4 MG SL TAB SL PRN (12:30)
[2020-05-02] MEDS: CEFEPIME HCL 1 GM VIAL IVP SCH ×2 (14:00→17:08)
--- NOTE | 2020-05-02 16:30 | NUR ---
TX. COMPLETE. 1.5 LITER REMOVED. TOLERATED TX. WELL BP 149/84, HR, 93, RR. 18. 02 SAT 100% ON 3 LITERS O2
[2020-05-03] VITALS (7 sets, daily range): BP systolic 146–169; BP diastolic 57–76
[2020-05-03 04:07] LABS: BASOPHILS % (AUTO) 0.5 % (0.0-5.0); HEMATOCRIT 25.1 % (36-48); LYMPHOCYTES % (AUTO) 14.5 % (21.0-51.0); MEAN CORPUSCULAR HEMOGLOBIN 30.5 pg (27.0-33.0); MEAN CORPUSCULAR HGB CONC 32.7 g/dL (32.0-36.0); MEAN CORPUSCULAR VOLUME 93.3 fL (79-99); MONOCYTES % (AUTO) 11.2 % (3.0-13.0); NEUTROPHILS % (AUTO) 71.5 % (40.0-77.0); PLATELET COUNT (AUTO) 165 K/uL (130-400); RED BLOOD CELL COUNT(AUTO) 2.69 MIL/uL (4.00-5.50); RED CELL DISTRIBUTION WIDTH 13.3 % (11.0-15.5); WHITE BLOOD COUNT (AUTO) 3.9 K/uL (4.8-10.8)
[2020-05-03] MEDS: INSULIN HUMULIN R 100 UNIT/ML 3ML SQ SCH ×4 (06:27→21:36)
[2020-05-03 06:30] LABS: ALBUMIN 2.6 g/dL (3.5-5.0); BILIRUBIN,TOTAL 0.5 mg/dL (0.2-1.0); CREATININE 4.5 mg/dL (0.5-1.5); CRP QUANTITATIVE 50.8 mg/L (0.00-9.0); POTASSIUM 3.7 mmol/L (3.5-5.1); TOTAL PROTEIN, SERUM 7.3 g/dL (6.0-8.3)
[2020-05-03] MEDS: FAMOTIDINE 20MG TAB 20 MG TAB PO SCH ×2 (08:25→20:32)
[2020-05-03] MEDS: TACROLIMUS 1 MG CAPSULE PO SCH ×2 (08:25→20:32)
[2020-05-03] MEDS: ASCORBIC ACID 500 MG TAB PO SCH (08:25)
[2020-05-03] MEDS: ZINC SULFATE 220 CAPSULE PO SCH (08:26)
[2020-05-03] MEDS: HEPARIN SODIUM 5000UNIT/ML 1ML VIAL SQ SCH ×2 (08:31→21:36)
[2020-05-03] MEDS ORDERED: ONDANSETRON HCL 4 MG/2 ML VIAL IVP PRN (08:45)
--- NOTE | 2020-05-03 10:01 | NUR ---
ATFER APPROX 3 MINUTES; PT C/O LEGS UNABLE TO SUPPORT HER. UNABLE TO CONTINUE Addendum: 05/03/20 at 1009 by GREG HOLGUIN RT Amended: Links added.
[2020-05-03] MEDS: METOCLOPRAMIDE 10 MG/2 ML VIAL IVP SCH ×2 (11:29→16:30)
--- NOTE | 2020-05-03 13:44 | NUR ---
DR. WARD IN ROOM SPEAKING WITH PT. RE:PLAN OF CARE AND DISCHARGE DISPOSITION. QUESTIONS ANSWERED BY DR. WARD.
--- NOTE | 2020-05-04 | NUR ---
PT IS SINUS TACH. WHEN AMBULATING REACHES 120S. NO DISTRESS NOTED.
[2020-05-04 04:04] VITALS: BP 161/64
[2020-05-04 04:28] LABS: ALBUMIN 2.8 g/dL (3.5-5.0); BILIRUBIN,TOTAL 0.5 mg/dL (0.2-1.0); CREATININE 6.6 mg/dL (0.5-1.5); POTASSIUM 4.2 mmol/L (3.5-5.1); TOTAL PROTEIN, SERUM 7.8 g/dL (6.0-8.3)
--- NOTE | 2020-05-04 05:00 | NUR ---
DR. OLU JACK UPDATED ON PT STATUS. NOTIFIED ABOUT CODE BLUE AND CONTINUOUS VOMITING OF BLOOD. STATED HE WOULD EXPEDITE THE PROCEDURE AND DO EGD AT BEDSIDE. TELEPHONE CONSENT OBTAINED FROM DAKOTAH HAN AND WITNESSED BY SHAILA RAMACHANDRAN.
[2020-05-04] MEDS: INSULIN HUMULIN R 100 UNIT/ML 3ML SQ SCH ×3 (06:29→16:13)
[2020-05-04] MEDS: METOCLOPRAMIDE 10 MG/2 ML VIAL IVP SCH ×3 (06:58→16:39)
[2020-05-04 08:25] VITALS: BP 137/56
[2020-05-04] MEDS: ZINC SULFATE 220 CAPSULE PO SCH ×2 (09:00→12:09)
[2020-05-04] MEDS: FAMOTIDINE 20MG TAB 20 MG TAB PO SCH ×2 (09:00→12:08)
[2020-05-04] MEDS: HEPARIN SODIUM 5000UNIT/ML 1ML VIAL SQ SCH ×2 (09:00→12:09)
[2020-05-04] MEDS: TACROLIMUS 1 MG CAPSULE PO SCH ×2 (09:00→12:08)
[2020-05-04] MEDS: ASCORBIC ACID 500 MG TAB PO SCH ×2 (09:00→12:08)
[2020-05-04] MEDS ORDERED: METOPROLOL TARTRATE 25 MG TAB PO SCH ×2 (09:30→21:00)
[2020-05-04 12:16] VITALS: BP 150/42
[2020-05-04] MEDS: CEFEPIME HCL 1 GM VIAL IVP SCH (13:14)
--- NOTE | 2020-05-04 15:40 | NUR ---
DR. Amber LEONARD IN ROOM SPEAKING WITH PT. DR. LEONARD INFORMED PT. SHE IS OK TO BE DISCHARGED HOME.
[2020-05-04 16:26] VITALS: BP 156/46
--- NOTE | 2020-05-04 16:30 | NUR ---
INFORMED Boubacar KRISHNAMURTHY, CHILD STUDY TEAM DIRECTOR, PT. OK TO BE DISCHARGED HOME PER DR. Amber LEONARD AND PT. REQUESTING TO GO HOME, NOT TO SNF. CHILD STUDY TEAM DIRECTOR WILL CALL BACK WITH ORDERS.
--- NOTE | 2020-05-04 17:30 | NUR ---
INFORMED Boubacar KRISHNAMURTHY, INSPECTOR FINISHING, PT. REQUESTING TO BE DISCHARGED HOME. Boubacar KRISHNAMURTHY, STATES, "NO MAYBE TOMORROW."
--- NOTE | 2020-05-04 18:01 | NUR ---
cm note met with patient and discussed md orders for snf for rehab, pt states she has discussed with her md and does not wish to go to any snf. states she has plenty of family to assist her at home, including her brother and sister and feels safe to return home. updated primary nurse tashi of pt refusal for snf at this time.
--- NOTE | 2020-05-04 18:18 | NUR ---
PT. REQUESTED TO LEAVE AMA, HL REMOVED.
== END 2020-05-04 18:18 | disposition left against medical advice (07) | DRG 291 ==
LOC: EDH 03:51 → EDHIP 08:05 → DAHIP 05-01 22:06
PROVIDERS: ADMIT Family Medicine; ATTEND Family Medicine
PROC: 5A1D70Z Performance of Urinary Filtration, Intermittent, Less than 6 Hours Per Day (ICD-10-PCS; principal; 2020-04-30)
PROC: 5A1D70Z Performance of Urinary Filtration, Intermittent, Less than 6 Hours Per Day (ICD-10-PCS; 2020-05-02)
PROC: 5A1D70Z Performance of Urinary Filtration, Intermittent, Less than 6 Hours Per Day (ICD-10-PCS; 2020-05-04)
DX: I13.2 Hypertensive heart and chronic kidney disease with heart failure and with stage 5 chronic kidney disease, or end stage renal disease (principal); J96.01 Acute respiratory failure with hypoxia; J18.9 Pneumonia, unspecified organism; I50.33 Acute on chronic diastolic (congestive) heart failure; N18.6 End stage renal disease; J90 Pleural effusion, not elsewhere classified; Z94.4 Liver transplant status; J44.0 Chronic obstructive pulmonary disease with (acute) lower respiratory infection; Z99.2 Dependence on renal dialysis; E11.22 Type 2 diabetes mellitus with diabetic chronic kidney disease; E87.70 Fluid overload, unspecified; E87.5 Hyperkalemia; Y95 Nosocomial condition; Z03.818 Encounter for observation for suspected exposure to other biological agents ruled out; Z88.0 Allergy status to penicillin; Z91.041 Radiographic dye allergy status; R53.81 Other malaise
CPT/HCPCS: 0099U; 36415; 36600; 71045; 71250; 80053; 82550; 82728; 82803; 82948; 83605; 83615; 83874; 83880; 84145; 84484; 85025; 85378; 85610; 85730; 86140; 86850; 86900; 86901; 87040; 90935; 93005; 94760; 99291; G0378; J0456; J0692; J0696; J1644; J1815; J2765; J3490; J7507; U0003

== ENCOUNTER 2020-05-24 08:26 | Inpatient (IN) | payer MEDICARE ==
[~2020-05-24] VITALS: Ht 167.6 cm; Wt 68.9 kg
[~2020-05-24 08:26] MED LIST changes: +ALBU0.63 IH; -AMLO10TA7 PO; +AMLO5TAB4 PO
[2020-05-24 08:51] LABS: BASOPHILS % (AUTO) 0.6 % (0.0-5.0); EOSINOPHILS % (AUTO) 1.7 % (0.0-8.0); HEMATOCRIT 28.7 % (36-48); LYMPHOCYTES % (AUTO) 8.1 % (21.0-51.0); MEAN CORPUSCULAR HEMOGLOBIN 31.5 pg (27.0-33.0); MEAN CORPUSCULAR HGB CONC 31.7 g/dL (32.0-36.0); MEAN CORPUSCULAR VOLUME 99.3 fL (79-99); MONOCYTES % (AUTO) 6.1 % (3.0-13.0); PLATELET COUNT (AUTO) 156 K/uL (130-400); RED BLOOD CELL COUNT(AUTO) 2.89 MIL/uL (4.00-5.50); RED CELL DISTRIBUTION WIDTH 17.3 % (11.0-15.5); WHITE BLOOD COUNT (AUTO) 6.6 K/uL (4.8-10.8)
[2020-05-24 09:09] LABS: INR 1.06 (0.85-1.15); PARTIAL THROMBOPLASTIN TIME 26.3 SEC (26.3-35.5); PROTHROMBIN TIME 11.4 SEC (9.6-11.6)
[2020-05-24 09:16] LABS: ALANINE AMINOTRANSFERASE 16 U/L (12-78); ALBUMIN 2.8 g/dL (3.5-5.0); ASPARTATE AMINOTRANSFERASE 39 U/L (10-37); BILIRUBIN,TOTAL 0.8 mg/dL (0.2-1.0); CARBON DIOXIDE 29 mmol/L (21-32); CHLORIDE 97 mmol/L (101-111); CREATINE KINASE, TOTAL 66 U/L (21-232); CREATININE 4.3 mg/dL (0.5-1.5); GLOMERULAR FILTR. RATE CALC 11 mL/min (>60); GLUCOSE,RANDOM 352 mg/dL (70-105); MYOGLOBIN 66 ng/mL (10-92); SODIUM SERUM 133 mmol/L (136-145); TOTAL PROTEIN, SERUM 8.2 g/dL (6.0-8.3); TROPONIN I < 0.04 ng/mL (0.00-0.06); UREA NITROGEN, BLOOD 19 mg/dL (7-18)
[2020-05-24] MEDS ORDERED: LEVOFLOXACIN 500 MG/D5W 100 ML 100 ML ONE (09:36)
[2020-05-24] MEDS ORDERED: METHYLPREDNISOLONE SOD SUCC 40MG/ML 1ML ONE (09:36)
[2020-05-24 09:48] LABS: ABG BASE EXCESS 3.6 mmol/L (-2.0-3.0); ABG HCO3 28.3 mmol/L (21.0-28.0); ABG OXYGEN SATURATION 96.3 % (95.0-99.0); ABG PCO2 43 mmHg (32-45)
[2020-05-24] MEDS ORDERED: ONDANSETRON HCL 4 MG/2 ML VIAL ONE (09:48)
[2020-05-24] MEDS ORDERED: ONDANSETRON HCL 4 MG/2 ML VIAL IV PRN (12:00)
[2020-05-24] MEDS ORDERED: ERGOCALCIFEROL (VITAMIN D2) 50,000 UNIT CAPSULE PO SCH (12:00)
[2020-05-24] MEDS: ZINC SULFATE 220 CAPSULE PO SCH (12:31)
[2020-05-24] MEDS: FUROSEMIDE 10 MG/ML 2ML VIAL IV SCH ×2 (12:31→20:33)
[2020-05-24] MEDS: ASCORBIC ACID 500 MG TAB PO SCH (12:32)
[2020-05-24] MEDS: HEPARIN SODIUM 5000UNIT/ML 1ML VIAL SQ SCH ×2 (14:00→20:38)
[2020-05-24 15:15] VITALS: BP 145/80
[2020-05-24] MEDS ORDERED: CLONIDINE HCL 0.2 MG TABLET PO SCH (15:45)
[2020-05-24] MEDS ORDERED: NON-FORMULARY MEDICATION 1 EACH (Albuterol Sulfate 0.63 MG) IH PRN (15:45)
[2020-05-24] MEDS ORDERED: ONDANSETRON 4 MG TABLET PO PRN (15:45)
[2020-05-24] MEDS: INSULIN HUMULIN R 100 UNIT/ML 3ML SQ SCH ×2 (16:44→20:51)
[2020-05-24] MEDS: CALCIUM ACETATE 667 MG CAPSULE PO SCH (17:00)
[2020-05-24] MEDS ORDERED: ALBUTEROL INHALER 90MCG/INH IH PRN (17:15)
[2020-05-24 19:00] VITALS: BP 131/57
[2020-05-24] MEDS: HYDRALAZINE HCL 25 MG TABLET PO SCH (20:33)
[2020-05-24] MEDS: CITALOPRAM 20 MG TABLET PO SCH (20:34)
[2020-05-24] MEDS: METOPROLOL TARTRATE 50 MG TAB PO SCH (20:34)
[2020-05-24] MEDS: TACROLIMUS 1 MG CAPSULE PO SCH (20:34)
[2020-05-24] MEDS ORDERED: NON-FORMULARY MEDICATION 1 EACH (Hydralazine HCl 100 MG) PO SCH (21:00)
[2020-05-24] MEDS ORDERED: NON-FORMULARY MEDICATION 1 EACH (Metoprolol Tartrate 100 MG) PO SCH (21:00)
[2020-05-24 23:00] VITALS: BP 120/80
[2020-05-25 03:00] VITALS: BP 144/88
[2020-05-25] MEDS: INSULIN HUMULIN R 100 UNIT/ML 3ML SQ SCH ×4 (06:08→21:00)
[2020-05-25] MEDS: INSULIN GLARGINE 100 UNITS/ML 10 ML VIAL SQ SCH (06:09)
[2020-05-25 07:41] LABS: BASOPHILS % (AUTO) 0.5 % (0.0-5.0); EOSINOPHILS % (AUTO) 1.4 % (0.0-8.0); HEMATOCRIT 27.4 % (36-48); LYMPHOCYTES % (AUTO) 17.1 % (21.0-51.0); MEAN CORPUSCULAR HGB CONC 32.1 g/dL (32.0-36.0); MEAN CORPUSCULAR VOLUME 99.6 fL (79-99); MONOCYTES % (AUTO) 6.5 % (3.0-13.0); NEUTROPHILS % (AUTO) 74.3 % (40.0-77.0); PLATELET COUNT (AUTO) 149 K/uL (130-400); RED BLOOD CELL COUNT(AUTO) 2.75 MIL/uL (4.00-5.50); WHITE BLOOD COUNT (AUTO) 4.3 K/uL (4.8-10.8)
[2020-05-25 08:00] VITALS: BP 131/57
--- NOTE | 2020-05-25 08:03 | NUR ---
paged dr Chase Mccall for new consult. Pt needs dialysis today. TTS
[2020-05-25] MEDS: ZINC SULFATE 220 CAPSULE PO SCH (08:09)
[2020-05-25] MEDS: AMLODIPINE BESYLATE 5 MG TAB PO SCH (08:09)
[2020-05-25] MEDS: FUROSEMIDE 10 MG/ML 2ML VIAL IV SCH (08:10)
[2020-05-25] MEDS: CALCIUM ACETATE 667 MG CAPSULE PO SCH ×3 (08:10→16:38)
[2020-05-25] MEDS: ASCORBIC ACID 500 MG TAB PO SCH (08:10)
[2020-05-25] MEDS: HEPARIN SODIUM 5000UNIT/ML 1ML VIAL SQ SCH ×3 (08:10→20:46)
[2020-05-25] MEDS: METOPROLOL TARTRATE 50 MG TAB PO SCH ×2 (08:12→20:48)
[2020-05-25] MEDS: LISINOPRIL 40 MG TABLET PO SCH (08:14)
[2020-05-25 08:15] LABS: ALBUMIN 2.6 g/dL (3.5-5.0); BILIRUBIN,TOTAL 0.6 mg/dL (0.2-1.0); CREATININE 5.6 mg/dL (0.5-1.5); CRP QUANTITATIVE 20.5 mg/L (0.00-9.0); POTASSIUM 4.7 mmol/L (3.5-5.1); TOTAL PROTEIN, SERUM 7.4 g/dL (6.0-8.3)
[2020-05-25] MEDS: HYDRALAZINE HCL 25 MG TABLET PO SCH ×3 (08:15→20:48)
[2020-05-25] MEDS: TACROLIMUS 1 MG CAPSULE PO SCH ×2 (08:15→20:47)
[2020-05-25] MEDS: INSULIN LISPRO 100 UNIT/ML 3ML SQ SCH ×3 (08:19→16:37)
[2020-05-25] MEDS ORDERED: INSULIN GLARGINE 100 UNITS/ML 10 ML VIAL SQ SCH (09:00)
[2020-05-25 11:17] VITALS: BP 150/60
--- NOTE | 2020-05-25 16:04 | NUR ---
INITIAL SW spoke with patient's sister, Krystina Marshall. Patient lives alone but her sister states she has been staying with her. Patient's sister is also coming from [place] to help care for patient. No home services at this time. Dialysis: TTS at [facility] in [place] at 5am. Patient drives herself. DME: [facility], [employer]. As per sister, patient was independent with ADL's and drove prior to discharge. PCP is Dr. Ranjith Rm. Pharmacy is [facility] in [place]. DCP is home. Addendum: 05/25/20 at 1607 by ROSHAN GORMAN Amended: Links added.
[2020-05-25 18:20] VITALS: BP 137/57
[2020-05-25] MEDS: CITALOPRAM 20 MG TABLET PO SCH (20:47)
[2020-05-25 21:40] VITALS: BP 161/72
[2020-05-26] MEDS: ACETAMINOPHEN 325 MG TAB PO PRN (00:09)
[2020-05-26 00:42] VITALS: BP 120/52
[2020-05-26 03:55] VITALS: BP 136/59
[2020-05-26] MEDS: INSULIN HUMULIN R 100 UNIT/ML 3ML SQ SCH ×4 (06:05→20:36)
[2020-05-26] MEDS: CALCIUM ACETATE 667 MG CAPSULE PO SCH ×3 (06:11→17:29)
[2020-05-26] MEDS: INSULIN GLARGINE 100 UNITS/ML 10 ML VIAL SQ SCH (06:11)
[2020-05-26] MEDS: INSULIN LISPRO 100 UNIT/ML 3ML SQ SCH ×3 (06:16→17:37)
[2020-05-26 06:20] LABS: BASOPHILS % (AUTO) 0.7 % (0.0-5.0); HEMATOCRIT 26.1 % (36-48); MEAN CORPUSCULAR HEMOGLOBIN 32.1 pg (27.0-33.0); MEAN CORPUSCULAR HGB CONC 32.2 g/dL (32.0-36.0); MEAN CORPUSCULAR VOLUME 99.6 fL (79-99); MONOCYTES % (AUTO) 9.1 % (3.0-13.0); NEUTROPHILS % (AUTO) 65.2 % (40.0-77.0); PLATELET COUNT (AUTO) 149 K/uL (130-400); RED BLOOD CELL COUNT(AUTO) 2.62 MIL/uL (4.00-5.50); RED CELL DISTRIBUTION WIDTH 16.5 % (11.0-15.5); WHITE BLOOD COUNT (AUTO) 4.1 K/uL (4.8-10.8)
[2020-05-26 07:48] VITALS: BP 138/57
--- NOTE | 2020-05-26 09:00 | NUR ---
c/o of feeling tired and weak.
[2020-05-26] MEDS: TACROLIMUS 1 MG CAPSULE PO SCH ×2 (10:33→20:37)
[2020-05-26] MEDS: LISINOPRIL 40 MG TABLET PO SCH (10:33)
[2020-05-26] MEDS: AMLODIPINE BESYLATE 5 MG TAB PO SCH (10:33)
[2020-05-26] MEDS: ASCORBIC ACID 500 MG TAB PO SCH (10:33)
[2020-05-26] MEDS: HYDRALAZINE HCL 25 MG TABLET PO SCH ×3 (10:33→20:38)
[2020-05-26] MEDS: ZINC SULFATE 220 CAPSULE PO SCH (10:34)
[2020-05-26] MEDS: METOPROLOL TARTRATE 50 MG TAB PO SCH ×2 (10:34→20:37)
[2020-05-26] MEDS: HEPARIN SODIUM 5000UNIT/ML 1ML VIAL SQ SCH ×3 (10:41→20:35)
[2020-05-26 11:12] VITALS: BP 131/58
[2020-05-26 12:03] LABS: ALBUMIN 2.5 g/dL (3.5-5.0); BILIRUBIN,TOTAL 0.4 mg/dL (0.2-1.0); CREATININE 4.6 mg/dL (0.5-1.5); CRP QUANTITATIVE 11.1 mg/L (0.00-9.0); TOTAL PROTEIN, SERUM 7.1 g/dL (6.0-8.3)
[2020-05-26] MEDS ORDERED: LEVOFLOXACIN 500 MG TABLET PO SCH (14:50)
[2020-05-26 16:00] VITALS: BP 116/67
--- NOTE | 2020-05-26 18:00 | NUR ---
STATES TODAY HAS BEEN MORE TIRED THAN USUAL. ATE POORLY AND THIS EVENING DID NOT TAKE HER PHOSLO BECAUSE SHE WASN'T HUNGRY AND WASN'T GOING TO EAT
[2020-05-26] MEDS: CITALOPRAM 20 MG TABLET PO SCH (20:38)
[2020-05-26 20:46] VITALS: BP 133/67
[2020-05-27 00:56] VITALS: BP 147/63
[2020-05-27] MEDS: ACETAMINOPHEN 325 MG TAB PO PRN (04:06)
[2020-05-27 04:23] VITALS: BP 131/62
[2020-05-27] MEDS: INSULIN HUMULIN R 100 UNIT/ML 3ML SQ SCH ×4 (06:20→20:52)
[2020-05-27] MEDS: CALCIUM ACETATE 667 MG CAPSULE PO SCH ×3 (06:22→18:27)
[2020-05-27] MEDS: INSULIN GLARGINE 100 UNITS/ML 10 ML VIAL SQ SCH (06:25)
[2020-05-27 07:11] LABS: ALBUMIN 2.6 g/dL (3.5-5.0); BILIRUBIN,TOTAL 0.5 mg/dL (0.2-1.0); CRP QUANTITATIVE 9.4 mg/L (0.00-9.0); POTASSIUM 4.3 mmol/L (3.5-5.1); TOTAL PROTEIN, SERUM 7.2 g/dL (6.0-8.3)
[2020-05-27 07:30] LABS: BASOPHILS % (AUTO) 0.6 % (0.0-5.0); EOSINOPHILS % (AUTO) 3.5 % (0.0-8.0); HEMATOCRIT 27.7 % (36-48); LYMPHOCYTES % (AUTO) 19.9 % (21.0-51.0); MEAN CORPUSCULAR HEMOGLOBIN 32.3 pg (27.0-33.0); MEAN CORPUSCULAR HGB CONC 32.5 g/dL (32.0-36.0); MEAN CORPUSCULAR VOLUME 99.3 fL (79-99); MONOCYTES % (AUTO) 9.5 % (3.0-13.0); NEUTROPHILS % (AUTO) 66.3 % (40.0-77.0); PLATELET COUNT (AUTO) 174 K/uL (130-400); RED BLOOD CELL COUNT(AUTO) 2.79 MIL/uL (4.00-5.50); RED CELL DISTRIBUTION WIDTH 16.1 % (11.0-15.5); WHITE BLOOD COUNT (AUTO) 4.6 K/uL (4.8-10.8)
[2020-05-27 07:50] VITALS: BP 126/61
[2020-05-27] MEDS: LISINOPRIL 40 MG TABLET PO SCH (08:00)
[2020-05-27] MEDS: METOPROLOL TARTRATE 50 MG TAB PO SCH ×2 (08:01→20:50)
[2020-05-27] MEDS: ASCORBIC ACID 500 MG TAB PO SCH (08:01)
[2020-05-27] MEDS: ZINC SULFATE 220 CAPSULE PO SCH (08:01)
[2020-05-27] MEDS: AMLODIPINE BESYLATE 5 MG TAB PO SCH (08:01)
[2020-05-27] MEDS: INSULIN LISPRO 100 UNIT/ML 3ML SQ SCH ×3 (08:06→18:29)
[2020-05-27] MEDS: TACROLIMUS 1 MG CAPSULE PO SCH ×2 (08:11→20:50)
[2020-05-27] MEDS: HYDRALAZINE HCL 25 MG TABLET PO SCH ×3 (08:12→20:51)
[2020-05-27] MEDS: HEPARIN SODIUM 5000UNIT/ML 1ML VIAL SQ SCH ×3 (08:13→20:52)
[2020-05-27 10:38] VITALS: BP 124/63
[2020-05-27 15:38] VITALS: BP 111/52
[2020-05-27 20:00] VITALS: BP 120/60
[2020-05-27] MEDS: CITALOPRAM 20 MG TABLET PO SCH (20:50)
[2020-05-27 21:07] LABS: HEPATITIS A ANTIBODY IGM Negative (Negative); HEPATITIS B CORE IGM Negative (Negative); HEPATITIS Bs ANTIGEN SCREEN P Negative (Negative)
[2020-05-28] VITALS: BP 98/54
[2020-05-28 03:47] VITALS: BP 122/66
[2020-05-28 04:41] LABS: BASOPHILS % (AUTO) 0.5 % (0.0-5.0); EOSINOPHILS % (AUTO) 1.2 % (0.0-8.0); HEMATOCRIT 28.9 % (36-48); LYMPHOCYTES % (AUTO) 19.7 % (21.0-51.0); MEAN CORPUSCULAR HEMOGLOBIN 31.8 pg (27.0-33.0); MEAN CORPUSCULAR HGB CONC 32.5 g/dL (32.0-36.0); MEAN CORPUSCULAR VOLUME 97.6 fL (79-99); MONOCYTES % (AUTO) 10.3 % (3.0-13.0); NEUTROPHILS % (AUTO) 68.1 % (40.0-77.0); PLATELET COUNT (AUTO) 185 K/uL (130-400); RED BLOOD CELL COUNT(AUTO) 2.96 MIL/uL (4.00-5.50); RED CELL DISTRIBUTION WIDTH 15.9 % (11.0-15.5); WHITE BLOOD COUNT (AUTO) 4.2 K/uL (4.8-10.8)
[2020-05-28 05:14] LABS: ALBUMIN 2.6 g/dL (3.5-5.0); BILIRUBIN,TOTAL 0.5 mg/dL (0.2-1.0); CREATININE 7.4 mg/dL (0.5-1.5); POTASSIUM 5.1 mmol/L (3.5-5.1); TOTAL PROTEIN, SERUM 7.3 g/dL (6.0-8.3)
[2020-05-28] MEDS: INSULIN HUMULIN R 100 UNIT/ML 3ML SQ SCH (05:49)
[2020-05-28] MEDS: INSULIN GLARGINE 100 UNITS/ML 10 ML VIAL SQ SCH (05:50)
[2020-05-28] MEDS: CALCIUM ACETATE 667 MG CAPSULE PO SCH ×3 (08:03→17:00)
[2020-05-28] MEDS: ASCORBIC ACID 500 MG TAB PO SCH (08:03)
[2020-05-28] MEDS: AMLODIPINE BESYLATE 5 MG TAB PO SCH (08:03)
[2020-05-28] MEDS: LISINOPRIL 40 MG TABLET PO SCH (08:03)
[2020-05-28] MEDS: METOPROLOL TARTRATE 50 MG TAB PO SCH (08:03)
[2020-05-28] MEDS: ZINC SULFATE 220 CAPSULE PO SCH (08:03)
[2020-05-28 08:06] VITALS: BP 129/69
[2020-05-28] MEDS: INSULIN LISPRO 100 UNIT/ML 3ML SQ SCH (08:10)
[2020-05-28] MEDS: HEPARIN SODIUM 5000UNIT/ML 1ML VIAL SQ SCH ×2 (08:10→15:02)
[2020-05-28] MEDS: HYDRALAZINE HCL 25 MG TABLET PO SCH ×2 (08:13→15:01)
[2020-05-28] MEDS: TACROLIMUS 1 MG CAPSULE PO SCH (08:13)
[2020-05-28] MEDS ORDERED: LEVOFLOXACIN 500 MG TABLET PO SCH (09:00)
--- NOTE | 2020-05-28 11:30 | NUR ---
HD DIALYSIS STARTED
[2020-05-28 11:39] VITALS: BP 111/56
--- NOTE | 2020-05-28 14:30 | NUR ---
HD PT LESLI DIALYSIS WELL NO COMPLICATION, V/S STABLE. 2.5 LITERS REMOVED IN 3 HOURS. PT WILL BE GOING HOME PER DR. WESTBROOK.
--- NOTE | 2020-05-28 15:57 | NUR ---
1558 GAVE PATIENT BPCI LETTER.
[2020-05-28] MEDS ORDERED: LEVO250T59 PO (16:16)
[2020-05-28 16:23] VITALS: BP 107/50
--- NOTE | 2020-05-28 18:25 | NUR ---
D/C PT LEAVING IN WHEEL CHAIR A/A X 3, VS/ STABLE, FEELING BETTER AFTER DIALYSIS AND NOT TIRED. D/C INSTRUCTIONS GIVEN TO PATIENT. PT. INSTRUCTED TO CALL Rita GUAJARDO OFFICE TOMORROW TO MAKE APPT. D/T OFFICE BEING CLOSED.
[2020-05-29] MEDS ORDERED: INSULIN GLARGINE 100 UNITS/ML 10 ML VIAL SQ SCH (06:30)
== END 2020-05-28 18:35 | disposition home or self-care (01) | DRG 682 ==
LOC: EDH 08:26 → EDHIP 11:53 → 4AH 14:53 → 3DH 05-25 18:20
PROVIDERS: ADMIT Internal Medicine; ATTEND Internal Medicine
PROC: 5A1D70Z Performance of Urinary Filtration, Intermittent, Less than 6 Hours Per Day (ICD-10-PCS; principal; 2020-05-25)
PROC: 5A1D70Z Performance of Urinary Filtration, Intermittent, Less than 6 Hours Per Day (ICD-10-PCS; 2020-05-28)
DX: I13.11 Hypertensive heart and chronic kidney disease without heart failure, with stage 5 chronic kidney disease, or end stage renal disease (principal); J96.01 Acute respiratory failure with hypoxia; J18.9 Pneumonia, unspecified organism; N18.6 End stage renal disease; I50.33 Acute on chronic diastolic (congestive) heart failure; Z94.4 Liver transplant status; Z94.0 Kidney transplant status; J44.0 Chronic obstructive pulmonary disease with (acute) lower respiratory infection; E11.22 Type 2 diabetes mellitus with diabetic chronic kidney disease; E87.70 Fluid overload, unspecified; Y95 Nosocomial condition; R53.81 Other malaise; Z20.828 Contact with and (suspected) exposure to other viral communicable diseases; Z91.19 Patient's noncompliance with other medical treatment and regimen; Z88.0 Allergy status to penicillin; Z88.8 Allergy status to other drugs, medicaments and biological substances; Z91.11 Patient's noncompliance with dietary regimen; Z79.4 Long term (current) use of insulin; Z99.2 Dependence on renal dialysis; Z80.0 Family history of malignant neoplasm of digestive organs; Z82.0 Family history of epilepsy and other diseases of the nervous system; Z82.5 Family history of asthma and other chronic lower respiratory diseases; Z82.49 Family history of ischemic heart disease and other diseases of the circulatory system; Z82.3 Family history of stroke
CPT/HCPCS: 36415; 36600; 71045; 78582; 80053; 80074; 82550; 82803; 82948; 83605; 83615; 83874; 83880; 84145; 84484; 85025; 85378; 85610; 85730; 86140; 86900; 86901; 87040; 87426; 90935; 93005; 94760; 99291; A9540; A9558; G0378; J1644; J1815; J1940; J1956; J2405; J2920; J7507; U0003

== ENCOUNTER 2020-08-01 05:40 | Day surgery (SDC) | payer MEDICARE ==
[2020-07-30 12:45] LABS: BASOPHILS % (AUTO) 0.2 % (0.0-5.0); HEMATOCRIT 35.2 % (36-48); LYMPHOCYTES % (AUTO) 9.3 % (21.0-51.0); MEAN CORPUSCULAR HEMOGLOBIN 31.3 pg (27.0-33.0); MEAN CORPUSCULAR HGB CONC 32.1 g/dL (32.0-36.0); MEAN CORPUSCULAR VOLUME 97.5 fL (79-99); MONOCYTES % (AUTO) 5.8 % (3.0-13.0); NEUTROPHILS % (AUTO) 84.5 % (40.0-77.0); PLATELET COUNT (AUTO) 158 K/uL (130-400); RED BLOOD CELL COUNT(AUTO) 3.61 MIL/uL (4.00-5.50); RED CELL DISTRIBUTION WIDTH 14.4 % (11.0-15.5)
[2020-07-30 13:20] LABS: CREATININE 7.2 mg/dL (0.5-1.5); POTASSIUM 4.9 mmol/L (3.5-5.1)
--- NOTE | 2020-07-30 13:30 | NUR ---
RE: ABNORMAL LABS INFORMED SNEHA PRUITT REGARDING GLUCOSE 563. PER LUIS ALFREDO, CALL PATIENT AND TELL HER TO GO SEE HER PCP TODAY FOR GLUCOSE 563.
--- NOTE | 2020-07-30 13:45 | NUR ---
RE: ABNORMAL GLUCOSE CALLED PATIENT AND INFORMED HER THAT HER GLUCOSE IS 563. PATIENT WAS INSTRUCTED TO GO SEE HER PCP TODAY. PATIENT STATES THAT SHE HASN'T TAKEN HER INSULIN TODAY AND THAT SHE IS ON HER WAY TO DIALYSIS. PATIENT INSTRUCTED TO TAKE HER INSULIN SOON POSSIBLE AND GO SEE HER PCP SOON POSSIBLE.
[2020-07-30 14:19] LABS: INR 1.09 (0.85-1.15); PROTHROMBIN TIME 11.7 SEC (9.6-11.6)
[2020-07-30 14:31] LABS: PARTIAL THROMBOPLASTIN TIME 27.2 SEC (26.3-35.5)
--- NOTE | 2020-07-31 11:54 | NUR ---
PCP INFORMED DR. ROTH PT DID NOT GO TO PCP YESTERDAY NOR TODAY.PT CHECKED SUGAR THIS AM FASTING AND REPORTED A 197. DR. ROTH STATES TO PROCEED WITH PLANNED PROCEDURE.
[2020-07-31 12:24] VITALS: BP 109/43
--- NOTE | 2020-07-31 12:42 | NUR ---
LABS INFORMED DR ROTH OF SODIUM LEVEL. NO NEW ORDERS RECEIVED.
[~2020-08-01] VITALS: Ht 168.9 cm; Wt 64.9 kg
[2020-08-01] VITALS (11 sets, daily range): BP systolic 110–150; BP diastolic 56–85
[~2020-08-01 05:40] MED LIST changes: -ALBU0.63 IH; +MONT10TA26 PO; -ONDA4TAB4 PO; -PHOSLOC PO
[2020-08-01] MEDS ORDERED: SODIUM CHLORIDE 0.9% 1000ML 1,000 ML IV ONE (06:12)
--- NOTE | 2020-08-01 06:15 | NUR ---
PREOP PT ARRIVED VIA W/C IN NO DISTRESS. PT HERE FOR RHC/LHC. PT ORIENTED TO ROOM AND CALL LIGHT WITH IN REACH. SIZE CHANGER CONNECTED. PT HAS NON FXN GRAFT TO LEFT UPPER ARM. PT ALSO HAS HEART MURMUR
[2020-08-01] MEDS ORDERED: TACR1CAP10 PO (06:53)
[2020-08-01] MEDS ORDERED: DiphenhydrAMINE HCL 50 MG/ML VIAL ONE (07:09)
[2020-08-01] MEDS ORDERED: METHYLPREDNISOLONE SOD SUCC 125MG/2ML VIAL ONE (07:10)
[2020-08-01] MEDS ORDERED: NITROGLYCERIN 2 MG/VIAL VIAL IV ONE (07:17)
[2020-08-01] MEDS ORDERED: BIVALIRUDIN 250 MG/VIAL IV ONE (07:17)
[2020-08-01] MEDS ORDERED: HEPARIN SODIUM 1000UNIT/ML 10ML VIAL ONE (07:17)
[2020-08-01] MEDS ORDERED: IOHEXOL-350 75 ML VIAL IV ONE (07:17)
[2020-08-01] MEDS ORDERED: IOHEXOL 350 MG/ML 100ML INFUS..BTL IV ONE (07:17)
[2020-08-01] MEDS ORDERED: FENTANYL CITRATE PF 50 MCG/1 ML 2ML VIAL ONE (07:18)
[2020-08-01] MEDS ORDERED: LIDOCAINE HCL 2% 20ML ONE (07:18)
[2020-08-01] MEDS ORDERED: MIDAZOLAM HCL 1 MG/ML 2ML VIAL ONE (07:18)
--- NOTE | 2020-08-01 07:24 | NUR ---
HEAD TELLER PT TAKEN TO HEAD TELLER VIA BED IN NO DISTRESS BY RIRI JACOBSEN RN
[2020-08-01] MEDS ORDERED: GLUCAGON 1MG KIT 1 MG ML IM PRN (08:30)
[2020-08-01] MEDS ORDERED: DEXTROSE 50%-WATER 50 ML DISP.SYRIN IV PRN (08:30)
--- NOTE | 2020-08-01 09:10 | NUR ---
post cath received pt and report from alissa paredes rn. pt in supine position in no distress. pt has bruise to rt upper thigh. will continue to monitor site. pt oliver light with in reach and pt given post cath instructions.
[2020-08-01] MEDS ORDERED: INSULIN HUMULIN R 100 UNIT/ML 3ML SQ SCH (11:30)
--- NOTE | 2020-08-01 14:15 | NUR ---
discharge pt and sister given d/c instructions. pt has rt groin soft to touch free from bleeding or hematoma. pt has bruising to rt thigh unchanged. pt taken out via w/c by amparo gupta
[2020-08-15] MEDS ORDERED: CALC667C10 PO (12:45)
[2020-08-15] MEDS ORDERED: ONDA-104 PO (12:47)
== END 2020-08-01 14:15 | disposition home or self-care (01) ==
LOC: DAH 05:40
PROVIDERS: ATTEND Internal Medicine Cardiovascular Disease
DX: I25.119 Atherosclerotic heart disease of native coronary artery with unspecified angina pectoris (principal); I34.0 Nonrheumatic mitral (valve) insufficiency; I35.0 Nonrheumatic aortic (valve) stenosis; E11.22 Type 2 diabetes mellitus with diabetic chronic kidney disease; I13.2 Hypertensive heart and chronic kidney disease with heart failure and with stage 5 chronic kidney disease, or end stage renal disease; I50.43 Acute on chronic combined systolic (congestive) and diastolic (congestive) heart failure; N18.6 End stage renal disease; Z99.2 Dependence on renal dialysis; Z79.4 Long term (current) use of insulin; Z79.899 Other long term (current) drug therapy
CPT/HCPCS: 36415; 71045; 80048; 82948 ×2; 85025; 85610; 85730; 93005; 93456; 96374; A4215; A4216; A4221; A4222; A4223 ×3; A4606; A4663; C1769; C1894 ×3; J1200; J1644 ×2; J2250; J2930; J3010; J3490 ×2; J7030 ×2; Q9965; Q9967 ×2; 96360; 99153; 99156; 99157; J0583

== ENCOUNTER 2020-08-16 09:30 | Day surgery (SDC) | payer MEDICARE ==
[2020-08-14 12:51] LABS: BASOPHILS % (AUTO) 0.7 % (0.0-5.0); EOSINOPHILS % (AUTO) 2.4 % (0.0-8.0); HEMATOCRIT 31.8 % (36-48); LYMPHOCYTES % (AUTO) 14.9 % (21.0-51.0); MEAN CORPUSCULAR HEMOGLOBIN 31.5 pg (27.0-33.0); MEAN CORPUSCULAR HGB CONC 32.7 g/dL (32.0-36.0); MEAN CORPUSCULAR VOLUME 96.4 fL (79-99); NEUTROPHILS % (AUTO) 71.7 % (40.0-77.0); PLATELET COUNT (AUTO) 130 K/uL (130-400); RED CELL DISTRIBUTION WIDTH 15.3 % (11.0-15.5); WHITE BLOOD COUNT (AUTO) 2.9 K/uL (4.8-10.8)
[2020-08-14 12:58] LABS: POTASSIUM 3.9 mmol/L (3.5-5.1)
[2020-08-14 13:03] LABS: INR 1.06 (0.85-1.15); PARTIAL THROMBOPLASTIN TIME 29.2 SEC (26.3-35.5); PROTHROMBIN TIME 11.4 SEC (9.6-11.6)
[2020-08-14 13:33] LABS: BASOPHILS % (MANUAL) 1 % (0-2); EOSINOPHILS % (MANUAL) 3 % (1-6); LYMPHOCYTES % (MANUAL) 14 % (22-44); MONOCYTES % (MANUAL) 6 % (2-9); SEGMENTED NEUTROPHILS % 76 % (40-70)
[2020-08-14 13:34] LABS: MAN.DIFF COMMENT-IMPRESSION MANUAL DIFFERENTIAL; PLATELET MORPHOLOGY COMMENT ADEQUATE
--- NOTE | 2020-08-15 11:55 | NUR ---
DR ROTH INFORMED OF ABNORMAL LAB RESULTS- ORDERS FOR REPEAT BMP IN AM
[2020-08-15 12:54] VITALS: BP 102/54
[~2020-08-16] VITALS: Ht 167.6 cm; Wt 63.3 kg
[2020-08-16] VITALS (17 sets, daily range): BP systolic 109–132; BP diastolic 58–70
[~2020-08-16 09:30] MED LIST changes: +CALC667C10 PO; -MONT10TA26 PO; +ONDA-104 PO; +SODIUM CHLORIDE 0.9% 1000ML 1,000 ML IV SCH; +TACR1CAP10 PO
[2020-08-16 09:51] LABS: CREATININE 4.2 mg/dL (0.5-1.5); POTASSIUM 4.4 mmol/L (3.5-5.1)
[2020-08-16] MEDS ORDERED: LIDOCAINE HCL 2% VISCOUS 15 ML UDCUP ONE (10:40)
[2020-08-16] MEDS ORDERED: FLUMAZENIL 0.1MG/1ML 5ML VIAL IV ONE ×2 (10:40→10:51)
[2020-08-16] MEDS ORDERED: FENTANYL CITRATE PF 50 MCG/1 ML 2ML VIAL ONE (10:41)
[2020-08-16] MEDS ORDERED: MIDAZOLAM HCL 1 MG/ML 2ML VIAL ONE (10:42)
[2020-08-16] MEDS ORDERED: NALOXONE HCL 0.4 MG/1 ML ML ONE (10:43)
--- NOTE | 2020-08-16 11:34 | NUR ---
Procedure Dr. Harris and Rhys Stark, RT in the room; time out called for procedure. All in agreement. Pt placed on o2 via NC at 3l/min and sedation began to be administered as per order. Procedure to begin.
--- NOTE | 2020-08-16 11:50 | NUR ---
Procedure end Scope out. Pt tolerated well. VS remain wnl. Recovery phase to begin.
--- NOTE | 2020-08-16 12:50 | NUR ---
D/C Pt prepared for discharge. Pt awake, alert and oriented. Reviewed discharge instructions with f/u appointment time. Spoke to sister Krystina and also gave her discharge instructions and f/u appointment time information. Informed sister that as per Dr. Harris he wants for someone to accompany pt. She verbalized understanding. Pt was then taken to private vehicle via w/c where sister was waiting for her. Pt very appreciative of care.
== END 2020-08-16 13:00 ==
LOC: DAH 09:30 → EDSTATUS 12:00 → DAH 13:00
PROVIDERS: ATTEND Internal Medicine Cardiovascular Disease
DX: I37.1 Nonrheumatic pulmonary valve insufficiency (principal); E11.22 Type 2 diabetes mellitus with diabetic chronic kidney disease; I12.0 Hypertensive chronic kidney disease with stage 5 chronic kidney disease or end stage renal disease; N18.6 End stage renal disease; E11.51 Type 2 diabetes mellitus with diabetic peripheral angiopathy without gangrene; I25.10 Atherosclerotic heart disease of native coronary artery without angina pectoris; I25.2 Old myocardial infarction; I27.23 Pulmonary hypertension due to lung diseases and hypoxia; Z90.710 Acquired absence of both cervix and uterus; Z98.890 Other specified postprocedural states; Z88.0 Allergy status to penicillin; Z91.018 Allergy to other foods; Z99.2 Dependence on renal dialysis; Z79.01 Long term (current) use of anticoagulants; Z79.4 Long term (current) use of insulin; Z79.899 Other long term (current) drug therapy
CPT/HCPCS: 36415 ×2; 80048 ×2; 82948; 85025; 85610; 85730; 93005; 93313; A4215; A4216; A4221; A4222; A4223 ×3; A4606; A4663; J2250; J3010; J3490; J7030; 99152; J2310